=== PATIENT | female | born 1960 | race Caucasian/White ===

== ENCOUNTER 2016-07-02 10:57 | Inpatient (IN) | payer MEDICARE, MEDICAID ==
[~2016-07-02] VITALS: Ht 160 cm; Wt 111.8 kg
[~2016-07-02 10:57] MED LIST: BUPR300T3 PO; DULO60CA6 PO; HYDR-2678 PO; HYDR12.58 PO; HYDR200T PO; METO25TA9 PO; OLME20TA PO; TOPI50TA38 PO; ZIPR80CA2 PO
--- NOTE | 2016-07-02 12:12 | PHYS DOC ---
Past Medical History Past Medical History: Anxiety, Bipolar, Depression, Hypertension, Other Additional Past Medical Histor: lupus Past Surgical History: Appendectomy, Cholecystectomy, Hysterectomy, Knee Replacement, Other Additional Past Surgical Histo: bilateral knee replacement, rt arm skin graft Alcohol Use: None Drug Use: None Adult General Chief Complaint Chief Complaint: BACK PAIN OR INJURY HPI HPI Patient is a 55 year old female presents to the emergency department by EMS with complaints of lower back pain. Patient was seen at [facility] last night and was provided with a prescription for Percocet and Zofran. Mother at bedside states that she did not get the prescription filled last night as no pharmacies were open. Patient states that she has hydrocodone at home in which she has not taken because that has not helped with the pain and discomfort. Parent states she is here to be admitted as she is unable to get the patient up and around into the bathroom. Patient does state that she has some numbness and tingling down into her feet. Patient has not had pain medication since yesterday. Parent is in with patient upon assessment when parent states that she needs to be admitted and is requesting admission. Review of Systems Review of Systems Constitutional: Denies fever or chills [] Eyes: Denies change in visual acuity, redness, or eye pain [] HENT: Denies nasal congestion or sore throat [] Respiratory: Denies cough or shortness of breath [] Cardiovascular: No additional information not addressed in HPI [] GI: Denies abdominal pain, nausea, vomiting, bloody stools or diarrhea [] : Denies dysuria or hematuria [] Musculoskeletal: bilateral lower back pain denies joint pain [] Integument: Denies rash or skin lesions [] Neurologic: Denies headache, focal weakness or sensory changes [] Current Medications Current Medications Current Medications Medications (Trade) Dose Ordered Sig/Sydni Start Time Stop Time Status Last Admin Dose Admin Diazepam (Valium) 2 mg 1X ONCE 07/02/16 13:45 07/02/16 13:46 DC 07/02/16 13:45 2 MG Ketorolac Tromethamine (Toradol Im) 60 mg 1X ONCE 07/02/16 12:45 07/02/16 12:46 DC 07/02/16 12:40 60 MG Oxycodone/ Acetaminophen (Percocet 5/325) 1 tab 1X ONCE 07/02/16 12:30 07/02/16 12:31 DC 07/02/16 12:12 1 TAB Allergies Allergies Allergies Coded Allergies Type Severity Reaction Last Updated Verified lisinopril Adverse Reaction Intermediate 06/25/16 Yes Physical Exam Physical Exam Constitutional: Well developed, well nourished, no acute distress, non-toxic appearance. [] HENT: Normocephalic, atraumatic, bilateral external ears normal, oropharynx moist, no oral exudates, nose normal. [] Eyes: PERRLA, EOMI, conjunctiva normal, no discharge. [] Neck: Normal range of motion, no tenderness, supple, no stridor. [] Cardiovascular:Heart rate regular rhythm, no murmur [] Lungs & Thorax: Bilateral breath sounds clear to auscultation [] Abdomen: Bowel sounds normal, soft, no tenderness, no masses, no pulsatile masses. [] Skin: Warm, dry, no erythema, no rash. [] Back: No thoracic or lumbar spine tenderness noted no crepitus or deformity noted. Patient with pain to bilateral lower back areas. Extremities: No tenderness, no cyanosis, no clubbing, ROM intact, no edema. Peripheral pulses 2+ good sensation noted Neurologic: Alert and oriented X 3, normal motor function, normal sensory function, no focal deficits noted. [] Psychologic: Affect normal, judgement normal, mood normal. [] Current Patient Data Vital Signs Vital Signs Date Time Temp Pulse Resp B/P Pulse Ox O2 Delivery O2 Flow Rate FiO2 07/02/16 13:10 16 98 Room Air 07/02/16 11:00 98.7 99 129/75 98.7 EKG EKG [] Radiology/Procedures Radiology/Procedures [] Course & Med Decision Making Course & Med Decision Making Pertinent Labs and Imaging studies reviewed. (See chart for details) Parent at the bedside states that she needs to be admitted. She states normally Dr. May will call and make arrangements for her to be admitted prior to arrival. Parent continues to state that she is not able to take care of her at home as she cannot get her up and ambulate her to the bathroom. During assessment patient is not crying and is not tearful. She is able to sit forward without difficulty. Patient is able to sit up in bed without difficulty. Not until patient was provided with pain medication and parent stating that she is talkative to Dr. May in regards to admission did the patient start crying that she was in pain. Patient was noted to cry out periodically that she is having increased pain and discomfort. Attempted to ambulate with nursing staff with patient taking approximately 2 steps when family states that the cyst return for her in this is mean. Patient then stopped walking and starts crying more that she is in pain. Patient was provided with Percocet here in the emergency department as well as Toradol. After patient had attempted to ambulate with a walker Valium was provided. [id number] in regards to patients noncompliance and family request for admission since they do not feel that they can take care of her at home. Dr May recommends color consultant with Dr Fry After patient and family are aware the patient is being admitted she is no longer crying out that she is and discomfort. [] Dragon Disclaimer Dragon Disclaimer This electronic medical record was generated, in whole or in part, using a voice recognition dictation system. Departure Departure Impression: Primary Impression: Chronic back pain Disposition: 01 HOME, SELF-CARE Admitting Physician: Sukhdev May Condition: STABLE Referrals: SUKHDEV MAY MD (PCP) ALEXSANDER ARROYO NP Jul 02, 2016 12:12
[2016-07-02] MEDS ORDERED: OXYCODONE/APAP 5/325 TABLET. PO ONE (12:30)
[2016-07-02] MEDS ORDERED: KETOROLAC TROMETHAMINE 60 MG/2 ML SYRINGE. IM ONE (12:45)
[2016-07-02] MEDS ORDERED: DIAZEPAM 2 MG TABLET PO ONE (13:45)
[2016-07-02 15:49] VITALS: BP 116/67
[2016-07-02] MEDS ORDERED: MORPHINE SULFATE 2 MG/ML DISP.SYRIN. IV PRN (16:45)
[2016-07-02] MEDS ORDERED: ONDANSETRON PF 4 MG/2 ML VIAL. IV PRN (16:45)
[2016-07-02] MEDS ORDERED: methylPREDNISolone ACETATE 40 MG/ML VIAL. IM ONE (17:00)
[2016-07-02] MEDS ORDERED: BUPIVACAINE MPF 0.25% 10 ML VIAL. IJ ONE (17:00)
[2016-07-02] MEDS: MORPHINE SULFATE 4 MG/ML DISP.SYRIN. IV PRN ×2 (17:42→19:40)
[2016-07-02 19:00] VITALS: BP 106/58
[2016-07-02] MEDS: HYDROXYCHLOROQUINE 200 MG TABLET PO SCH (20:20)
[2016-07-02] MEDS: TOPIRAMATE 100 MG TABLET. PO SCH (20:20)
[2016-07-02] MEDS: ZIPRASIDONE 20 MG CAPSULE PO SCH (20:20)
[2016-07-02] MEDS: HYDROCODONE/APAP 5/325MG TABLET. PO PRN (20:22)
[2016-07-02 23:00] VITALS: BP 102/61
--- NOTE | 2016-07-03 02:26 | CONS ---
DATE OF CONSULTATION: 07/02/2016 ATTENDING PHYSICIAN: Dr. Ramires. The patient was seen at the request of Dr. Ramires for rehab evaluation. HISTORY OF PRESENT ILLNESS: This is a 55-year-old female with anxiety, bipolar disorder, depression, hypertension, lupus erythematosus, status post bilateral total knee arthroplasty done by Dr. Ramon Mitchell about 5 years ago, hysterectomy, cholecystectomy, appendectomy. The patient does not work. She lives with her parents. She had no steps for her to manage. She usually walks using a cane. The patient started having lower back pain with radiation to her left lower extremity, going on for about one and half to two weeks without any specific injury. She denies any trouble with her bowel or bladder control from this problem, but she had chronic urinary incontinence and has been using pads. The patient has been taking hydrocodone for pain, but is not helping. She was seen in the Emergency Room at [facility] last night, was given prescription for Percocet, but her mom does not drive at nighttime and she did not fill up the prescription. She was admitted for further evaluation and treatment through the Emergency Room this morning. ALLERGIES: The patient is known ALLERGIC TO LISINOPRIL. PHYSICAL EXAMINATION: Today revealed a middle-aged female. She is obese. She is in no acute distress. She had painful limited movements of her lumbar spine and tenderness to palpation over lumbar paraspinal muscles extending out to sacroiliac joint area and trochanteric bursa bilaterally. Straight leg raising test is negative bilaterally. She had 5/5 grade muscle strength in her lower extremities. Deep tendon reflexes are absent at both knees and ankles and she had equal perception of touch and pinprick sensation bilaterally. She is independent with rolling from side to side. I have not tested her transfers or ambulation skills at this time. IMAGING: She had MRI scan of her lumbar spine done on 06/26/2016, which revealed mild edema of S2, also apparently mild presacral edema. There is also apparently edema of visualized superior sacrum, could be due to sequelae of recent insufficiency fractures, otherwise difficulty to characterize, no enhancement upload within the intervertebral disk space suggestive of diskitis, trace focus of edema of the superior L4 endplate, although more likely to be reactive degenerative in etiology, small foci of marrow signal abnormality of T11 and T12 vertebral bodies which are nonspecific, may be due to atypical hemangioma unless there is clinical ____ history of malignancy, grade 1 anterior spondylolisthesis at L5-S1 and L5 spondylosis. ASSESSMENT: A middle-aged female with lower back pain with left lumbar radiculitis with associated bilateral trochanteric bursitis. No clinical evidence of lumbar radiculopathy. She had clinical evidence of peripheral neuropathy. She got obesity, status post bilateral total knee arthroplasty without any problems and also with history of anxiety, bipolar disorder, depression, hypertension, lupus erythematosus. RECOMMENDATION: To proceed with injecting painful left sacroiliac joint area to help ease her pain, which I performed under aseptic skin technique after skin preparation using alcohol swab and she tolerated the procedure satisfactorily. To consider asking Dr. Bess to consider sacroplasty if feasible. Dr. Ramires, I appreciate asking me to participate in the care of this interesting patient. I will be glad to follow her with you as needed for her rehabilitation. MIGUEL CRANDALL MD DR: DELFIN/bhargav JOB#: [id number] / [id number]
[2016-07-03 03:00] VITALS: BP 110/76
[2016-07-03] MEDS: MORPHINE SULFATE 4 MG/ML DISP.SYRIN. IV PRN ×6 (04:12→21:42)
[2016-07-03 07:00] VITALS: BP 97/58
[2016-07-03] MEDS: buPROPion XL 150 MG TAB.ER.24H PO SCH (07:47)
[2016-07-03] MEDS: DULOXETINE HCL 30 MG CAPSULE.DR. PO SCH (07:47)
[2016-07-03] MEDS: HYDROXYCHLOROQUINE 200 MG TABLET PO SCH ×2 (07:47→20:26)
[2016-07-03] MEDS: TOPIRAMATE 100 MG TABLET. PO SCH ×2 (07:47→20:26)
[2016-07-03] MEDS: ZIPRASIDONE 20 MG CAPSULE PO SCH ×2 (07:47→20:26)
[2016-07-03] MEDS: METOPROLOL SUCC 24HR ER 25 MG TAB.ER.24H. PO SCH (07:48)
[2016-07-03] MEDS: LOSARTAN POTASSIUM 50 MG TABLET. PO SCH (07:48)
[2016-07-03] MEDS: HYDROCHLOROTHIAZIDE 25 MG TABLET PO SCH (07:48)
--- NOTE | 2016-07-03 10:07 | PDOC ---
PROGRESS NOTES Subjective Subjective Pt awake and pleasant. Continues to c/o back pain. States she has been eating and drinking well with normal output. Objective Objective Pt awake and alert. NAD. VSS. Afebrile. Lungs CTA bilat. Resp even and unlabored. Heart with RRR. No murmurs. Vital Signs Date Time Temp Pulse Resp B/P Pulse Ox O2 Delivery O2 Flow Rate FiO2 07/03/16 08:12 20 97 Room Air 07/03/16 07:48 79 110/76 07/03/16 07:00 96.6 96.6 Intake and Output 07/03/16 07:00 Intake Total 370 ml Output Total 580 ml Balance -210 ml Intake Oral 370 ml Output Urine Total 580 ml # Voids 1 Assessment Assessment Problems Medical Problems: (1) Chronic back pain Status: Acute (2) Intractable back pain Status: Acute Plan Plan of Care 1. Back pain -MRI on 06/26/16 with mild edema of S2, mild presacral edema and edema of superior sacrum. These could be due to sequelae of recent insufficiency sacral fx. -Repeat MRI today -Dr Fry consulting - injection today -Dr Bess consulted for possible sacroplasty SW consulted as pt will most likely require SNU upon DC. DC pending adequate control of back pain and treatment by consults if indicated. Comment Review of Relevant I have reviewed the following items leo (where applicable) has been applied. Medications Current Medications Oxycodone/ Acetaminophen (Percocet 5/325) 1 tab 1X ONCE PO Last administered on 07/02/16 12:12; Start 07/02/16 at 12:30; Stop 07/02/16 at 12:31; Status DC Ketorolac Tromethamine (Toradol Im) 60 mg 1X ONCE IM Last administered on 07/02 12:40; Start 07/02/16 at 12:45; Stop 07/02/16 at 12:46; Status DC Diazepam (Valium) 2 mg 1X ONCE PO Last administered on 07/02/16 13:45; Start 07/02/16 at 13:45; Stop 07/02/16 at 13:46; Status DC Acetaminophen/ Hydrocodone Bitart (Lortab 5/325) 1 tab PRN Q4HRS PRN PO mild to moderate PAIN Last administered on 07/02/16 20:22; Start 07/02/16 at 16:45 Hydroxychloroquine Sulfate (Plaquenil) 200 mg BID PO Last administered on 07:47; Start 07/02/16 at 21:00 Metoprolol Succinate (Toprol Xl) 50 mg DAILY PO Last administered on 07/03/16 07:48; Start 07/03/16 at 09:00 Bupropion HCl (Wellbutrin Xl) 300 mg DAILY PO Last administered on 07/03/16 07 :47; Start 07/03/16 at 09:00 Duloxetine HCl (Cymbalta) 60 mg DAILY PO Last administered on 07/03/16 07:47; Start 07/03/16 at 09:00 Hydrochlorothiazide (Hydrodiuril) 25 mg DAILY PO Last administered on 07:48; Start 07/03/16 at 09:00 Losartan Potassium (Cozaar) 100 mg DAILY PO Last administered on 07/03/16 07: 48; Start 07/03/16 at 09:00 Topiramate (Topamax) 150 mg BID PO Last administered on 07/03/16 07:47; Start 07/02/16 at 21:00 Ziprasidone (Geodon) 80 mg BID PO Last administered on 07/03/16 07:47; Start 07/02/16 at 21:00 Ondansetron HCl (Zofran) 4 mg PRN Q4HRS PRN IV NAUSEA/VOMITING; Start 07/02/16 at 16:45 Morphine Sulfate 2 mg PRN Q2HR PRN IV PAIN; Start 07/02/16 at 16:45 Morphine Sulfate 4 mg PRN Q2HR PRN IV PAIN Last administered on 07/03/16 07:42 ; Start 07/02/16 at 16:45 Morphine Sulfate 6 mg PRN Q2HR PRN IV PAIN; Start 07/02/16 at 16:45 Methylprednisolone Acetate (Depo-Medrol 40mg Vial) 40 mg 1X ONCE IM ; Start at 17:00; Stop 07/02/16 at 17:02; Status DC Bupivacaine HCl (Sensorcaine-Mpf 0.25%) 10 ml 1X ONCE IJ ; Start 07/02/16 at 17 :00; Stop 07/02/16 at 17:02; Status DC Active Scripts Active Reported Plaquenil (Hydroxychloroquine Sulfate) 200 Mg Tablet 200 Mg PO BID Geodon (Ziprasidone Hcl) 80 Mg Capsule 1 Cap PO BID Cymbalta (Duloxetine Hcl) 60 Mg Capsule.dr 1 Cap PO DAILY Benicar (Olmesartan Medoxomil) 20 Mg Tablet 1 Tab PO DAILY Wellbutrin Xl (Bupropion Hcl) 300 Mg Tab.er.24h 1 Tab PO DAILY Metoprolol Succinate ( Xl ) (Metoprolol Succinate) 25 Mg Tab.er.24h 2 Tab PO DAILY Topamax (Topiramate) 50 Mg Tablet 3 Tab PO BID Hydrochlorothiazide Tablet (Hydrochlorothiazide) 12.5 Mg Tablet 2 Tab PO DAILY Vitals/I & O Vital Sign - Last 24 Hours 07/02/16 07/02/16 07/02/16 07/02/16 11:00 12:12 13:10 15:49 Temp 98.7 97.8 98.7 97.8 Pulse 99 87 Resp 16 18 16 18 B/P 129/75 116/67 Pulse Ox 97 98 98 99 O2 Delivery Room Air Room Air Room Air Room Air 07/02/16 07/02/16 07/02/16 07/02/16 17:42 19:00 19:40 20:22 Temp 98.6 98.6 Pulse 101 Resp 20 20 20 B/P 106/58 Pulse Ox 93 O2 Delivery Room Air Room Air Room Air Room Air 07/02/16 07/03/16 07/03/16 07/03/16 23:00 03:00 04:12 07:00 Temp 98.1 97.7 96.6 98.1 97.7 96.6 Pulse 81 79 74 Resp 20 20 20 18 B/P 102/61 110/76 97/58 Pulse Ox 94 97 95 O2 Delivery Room Air Room Air Room Air Room Air 07/03/16 07/03/16 07/03/16 07/03/16 07:42 07:48 07:48 08:12 Pulse 79 79 Resp 20 20 B/P 110/76 110/76 Pulse Ox 97 97 O2 Delivery Room Air Room Air Intake and Output 07/02/16 07/02/16 07/03/16 15:00 23:00 07:00 Intake Total 370 ml Output Total 280 ml 300 ml Balance -280 ml 70 ml SUKHDEV MAY MD Jul 03, 2016 10:07
--- NOTE | 2016-07-03 10:13 | PDOC ---
PROGRESS NOTES Subjective Subjective She is sleeping in bed comfortably with lumbar corset on. Objective Objective Vital Signs Date Time Temp Pulse Resp B/P Pulse Ox O2 Delivery O2 Flow Rate FiO2 07/03/16 08:12 20 97 Room Air 07/03/16 07:48 79 110/76 07/03/16 07:00 96.6 96.6 Intake and Output 07/03/16 07:00 Intake Total 370 ml Output Total 580 ml Balance -210 ml Intake Oral 370 ml Output Urine Total 580 ml # Voids 1 Physical Exam Physical Exam No change with her lower extremity neurological condition. Assessment Assessment Problems Medical Problems: (1) Chronic back pain Status: Acute (2) Intractable back pain Status: Acute Plan Plan of Care To see how she does getting up with back support. Comment Review of Relevant I have reviewed the following items leo (where applicable) has been applied. Medications Current Medications Oxycodone/ Acetaminophen (Percocet 5/325) 1 tab 1X ONCE PO Last administered on 07/02/16 12:12; Start 07/02/16 at 12:30; Stop 07/02/16 at 12:31; Status DC Ketorolac Tromethamine (Toradol Im) 60 mg 1X ONCE IM Last administered on 07/02 12:40; Start 07/02/16 at 12:45; Stop 07/02/16 at 12:46; Status DC Diazepam (Valium) 2 mg 1X ONCE PO Last administered on 07/02/16 13:45; Start 07/02/16 at 13:45; Stop 07/02/16 at 13:46; Status DC Acetaminophen/ Hydrocodone Bitart (Lortab 5/325) 1 tab PRN Q4HRS PRN PO mild to moderate PAIN Last administered on 07/02/16 20:22; Start 07/02/16 at 16:45 Hydroxychloroquine Sulfate (Plaquenil) 200 mg BID PO Last administered on 07:47; Start 07/02/16 at 21:00 Metoprolol Succinate (Toprol Xl) 50 mg DAILY PO Last administered on 07/03/16 07:48; Start 07/03/16 at 09:00 Bupropion HCl (Wellbutrin Xl) 300 mg DAILY PO Last administered on 07/03/16 07 :47; Start 07/03/16 at 09:00 Duloxetine HCl (Cymbalta) 60 mg DAILY PO Last administered on 07/03/16 07:47; Start 07/03/16 at 09:00 Hydrochlorothiazide (Hydrodiuril) 25 mg DAILY PO Last administered on 07:48; Start 07/03/16 at 09:00 Losartan Potassium (Cozaar) 100 mg DAILY PO Last administered on 07/03/16 07: 48; Start 07/03/16 at 09:00 Topiramate (Topamax) 150 mg BID PO Last administered on 07/03/16 07:47; Start 07/02/16 at 21:00 Ziprasidone (Geodon) 80 mg BID PO Last administered on 07/03/16 07:47; Start 07/02/16 at 21:00 Ondansetron HCl (Zofran) 4 mg PRN Q4HRS PRN IV NAUSEA/VOMITING; Start 07/02/16 at 16:45 Morphine Sulfate 2 mg PRN Q2HR PRN IV PAIN; Start 07/02/16 at 16:45 Morphine Sulfate 4 mg PRN Q2HR PRN IV PAIN Last administered on 07/03/16 07:42 ; Start 07/02/16 at 16:45 Morphine Sulfate 6 mg PRN Q2HR PRN IV PAIN; Start 07/02/16 at 16:45 Methylprednisolone Acetate (Depo-Medrol 40mg Vial) 40 mg 1X ONCE IM ; Start at 17:00; Stop 07/02/16 at 17:02; Status DC Bupivacaine HCl (Sensorcaine-Mpf 0.25%) 10 ml 1X ONCE IJ ; Start 07/02/16 at 17 :00; Stop 07/02/16 at 17:02; Status DC Active Scripts Active Reported Plaquenil (Hydroxychloroquine Sulfate) 200 Mg Tablet 200 Mg PO BID Geodon (Ziprasidone Hcl) 80 Mg Capsule 1 Cap PO BID Cymbalta (Duloxetine Hcl) 60 Mg Capsule.dr 1 Cap PO DAILY Benicar (Olmesartan Medoxomil) 20 Mg Tablet 1 Tab PO DAILY Wellbutrin Xl (Bupropion Hcl) 300 Mg Tab.er.24h 1 Tab PO DAILY Metoprolol Succinate ( Xl ) (Metoprolol Succinate) 25 Mg Tab.er.24h 2 Tab PO DAILY Topamax (Topiramate) 50 Mg Tablet 3 Tab PO BID Hydrochlorothiazide Tablet (Hydrochlorothiazide) 12.5 Mg Tablet 2 Tab PO DAILY Vitals/I & O Vital Sign - Last 24 Hours 07/02/16 07/02/16 07/02/16 07/02/16 11:00 12:12 13:10 15:49 Temp 98.7 97.8 98.7 97.8 Pulse 99 87 Resp 16 18 16 18 B/P 129/75 116/67 Pulse Ox 97 98 98 99 O2 Delivery Room Air Room Air Room Air Room Air 07/02/16 07/02/16 07/02/16 07/02/16 17:42 19:00 19:40 20:22 Temp 98.6 98.6 Pulse 101 Resp 20 20 20 B/P 106/58 Pulse Ox 93 O2 Delivery Room Air Room Air Room Air Room Air 07/02/16 07/03/16 07/03/16 07/03/16 23:00 03:00 04:12 07:00 Temp 98.1 97.7 96.6 98.1 97.7 96.6 Pulse 81 79 74 Resp 20 20 20 18 B/P 102/61 110/76 97/58 Pulse Ox 94 97 95 O2 Delivery Room Air Room Air Room Air Room Air 07/03/16 07/03/16 07/03/16 07/03/16 07:42 07:48 07:48 08:12 Pulse 79 79 Resp 20 20 B/P 110/76 110/76 Pulse Ox 97 97 O2 Delivery Room Air Room Air Intake and Output 07/02/16 07/02/16 07/03/16 15:00 23:00 07:00 Intake Total 370 ml Output Total 280 ml 300 ml Balance -280 ml 70 ml MIGUEL CRANDALL MD Jul 03, 2016 10:13
[2016-07-03 10:39] VITALS: BP 92/46
--- NOTE | 2016-07-03 13:41 | RAD ---
PROCEDURE MRI sacrum without contrast. HISTORY Sacral insufficiency fractures, evaluation for sacroplasty. Abnormal MRI lumbar spine. TECHNIQUE 3 plane T1, 3 plane fat suppressed T2, and oblique coronal STIR imaging was performed. COMPARISON MRI lumbar spine from June 26, 2016. FINDINGS Bilateral sacral edema extends to the sacral ala bilaterally and is most notable in the S1 and S2 segments. Subtle T1 hypointense linear abnormalities are noted associated with the edema. Imaging appearance is compatible with sacral insufficiency fractures, acute. There is no obvious lesion to suggest pathologic fracture. A sacral perineural cyst is noted. Presacral edema is noted. Subcutaneous edema is noted. IMPRESSION Findings of acute bilateral sacral insufficiency fractures. Electronically signed by: Sree Andres MD (Jul 03, 2016 13:39:53)
--- NOTE | 2016-07-03 14:09 | HP ---
ADMIT DATE: 07/02/2016 CHIEF COMPLAINT AND HISTORY OF PRESENT ILLNESS: This is a 55-year-old white female who is well known to me from followup in the office as well as a recent hospital stay with discharge of 06/27/2016. The patient presented to the Emergency Room on the date of admission with complaints of low back pain. Her family accompanied her and stated that they were unable to take care of her at home due to her inability to be mobile without pain. The patient stated to the ER physician that she did have hydrocodone at home; however, had not been taking it as it had not helped in the past with the pain and discomfort. Upon the patient's previous hospitalization, an MRI was done and revealed a sacral insufficiency fracture with associated edema. The patient denies any trauma following the probable fracture. PAST MEDICAL HISTORY: Remarkable for longstanding bipolar depression, urge incontinence, arthritis, hypertension and hyperlipidemia. PAST SURGICAL HISTORY: She has had bilateral knee replacements, has had an appendectomy, cholecystectomy, , hysterectomy with BSO. MEDICATIONS: Brought with the patient, listed on the computer and have been addressed. ALLERGIES: She is allergic to penicillin. SOCIAL HISTORY: She is a nonsmoker, nondrinker, with 3 grandchildren and lives with her mother. FAMILY HISTORY: Positive for diabetes on her father's side, cancer of the breast on her mother's side. There has been no report of heart disease or hypertension on either side of the family. REVIEW OF SYSTEMS: As mentioned above. PHYSICAL EXAMINATION: GENERAL: She is a well-developed, well-nourished, obese white female who appears very uncomfortable. VITAL SIGNS: Stable. She is afebrile. HEAD, EYES, EARS, NOSE AND THROAT: Unremarkable. NECK: Supple, without thyromegaly. CHEST: Clear to auscultation and percussion. HEART: Regular rate and rhythm without S3, S4, or murmurs. ABDOMEN: Soft, nontender, without hepatosplenomegaly or mass. EXTREMITIES: Without cyanosis, clubbing or edema. NEUROLOGIC: She is intact. IMPRESSION: Severe back pain within inadequate pain control, probable sacral insufficiency fracture. PLAN: The patient has been admitted for pain control. Dr. Fry has been consulted and will be consulted for their input on treatment options. The patient will be monitored, managed and treated appropriately during her hospital stay. SUKHDEV MAY MD DR: JACOBY/bhargav JOB#: [id number] / [id number]
[2016-07-03 14:53] VITALS: BP 99/53
--- NOTE | 2016-07-03 15:14 | PDOC ---
Provider Note Provider Note IR Note: IR asked to consider sacral vertebroplasty--thank you. Barb is a pleasant 55 YO female with severe low back/sacral pain. She has had recent SI joint injection per Dr Fry, with only mild improvement. She is tender to palpation over sacrum. MRI today revealed findings consistent with extensive bilateral insufficiency fractures. By history, physical exam, and imaging, Barb is considered a reasonable candidate for image guided sacral vertebroplasty. Sacral vertebroplasty procedure, with benefits and risks, was discussed at length with Barb. She understood and was anxious to proceed. She has been tentatively scheduled for CT guided sacral vertebroplasty with me tomorrow at 1230 hrs, with anesthesia assistance. GAVINO NAVARRO MD Jul 03, 2016 15:14
[2016-07-03 18:22] LABS: INR 1.1 (0.8-1.1); PROTHROMBIN TIME PATIENT 13.4 SEC (11.7-14.0)
[2016-07-03 19:00] VITALS: BP 107/48
[2016-07-03 22:50] VITALS: BP 107/52
[2016-07-04] VITALS (11 sets, daily range): BP systolic 98–157; BP diastolic 52–97
[2016-07-04] MEDS: MORPHINE SULFATE 4 MG/ML DISP.SYRIN. IV PRN ×4 (08:40→21:09)
[2016-07-04] MEDS: HYDROCHLOROTHIAZIDE 25 MG TABLET PO SCH (09:00)
[2016-07-04] MEDS: LOSARTAN POTASSIUM 50 MG TABLET. PO SCH (09:00)
[2016-07-04] MEDS: METOPROLOL SUCC 24HR ER 25 MG TAB.ER.24H. PO SCH (09:00)
--- NOTE | 2016-07-04 10:27 | PDOC ---
PROGRESS NOTES Subjective Subjective Pt awake and pleasant. Continues to c/o pain in her lower back. Pt states she is NPO this am, however has an appetite. Pt denies difficulty with BMs or urination. Objective Objective Pt awake and alert. NAD. VSS. Afebrile. Lungs CTA bilat. Resp even and unlabored. Heart with RRR. No murmurs. Vital Signs Date Time Temp Pulse Resp B/P Pulse Ox O2 Delivery O2 Flow Rate FiO2 07/04/16 08:40 Room Air 07/04/16 07:00 98.0 70 18 107/60 94 98.0 Intake and Output 07/04/16 07:00 Intake Total 360 ml Output Total 300 ml Balance 60 ml Intake Oral 360 ml Output Urine Total 300 ml # Voids 4 Assessment Assessment Problems Medical Problems: (1) Chronic back pain Status: Acute (2) Intractable back pain Status: Acute Plan Plan of Care 1. Back pain -MRI on 06/26/16 with mild edema of S2, mild presacral edema and edema of superior sacrum. These could be due to sequelae of recent insufficiency sacral fx. -Repeat MRI on 07/03: "Findings of acute bilateral sacral insufficiency fractures." -Dr Fry consulting - injection on 07/03 -Dr Bess consulted - vertebroplasty scheduled for today [facility] to Dc tomorrow am to [facility]. Dc dependent on PT eval and recommendations and adequate pain control. Comment Review of Relevant I have reviewed the following items leo (where applicable) has been applied. Labs Laboratory Tests Test 07/03/16 17:30 Prothrombin Time 13.4SEC (11.7-14.0) Prothromb Time International Ratio 1.1 (0.8-1.1) Laboratory Tests Test 07/03/16 17:30 Prothrombin Time 13.4SEC (11.7-14.0) Prothromb Time International Ratio 1.1 (0.8-1.1) Medications Current Medications Oxycodone/ Acetaminophen (Percocet 5/325) 1 tab 1X ONCE PO Last administered on 07/02/16t 12:12; Start 07/02/16 at 12:30; Stop 07/02/16 at 12:31; Status DC Ketorolac Tromethamine (Toradol Im) 60 mg 1X ONCE IM Last administered on 07/02 12:40; Start 07/02/16 at 12:45; Stop 07/02/16 at 12:46; Status DC Diazepam (Valium) 2 mg 1X ONCE PO Last administered on 07/02/16 13:45; Start 07/02/16 at 13:45; Stop 07/02/16 at 13:46; Status DC Acetaminophen/ Hydrocodone Bitart (Lortab 5/325) 1 tab PRN Q4HRS PRN PO mild to moderate PAIN Last administered on 07/02/16 20:22; Start 07/02/16 at 16:45 Hydroxychloroquine Sulfate (Plaquenil) 200 mg BID PO Last administered on 20:26; Start 07/02/16 at 21:00 Metoprolol Succinate (Toprol Xl) 50 mg DAILY PO Last administered on 07/03/16 07:48; Start 07/03/16 at 09:00 Bupropion HCl (Wellbutrin Xl) 300 mg DAILY PO Last administered on 07/03/16 07 :47; Start 07/03/16 at 09:00 Duloxetine HCl (Cymbalta) 60 mg DAILY PO Last administered on 07/03/16 07:47; Start 07/03/16 at 09:00 Hydrochlorothiazide (Hydrodiuril) 25 mg DAILY PO Last administered on 07:48; Start 07/03/16 at 09:00 Losartan Potassium (Cozaar) 100 mg DAILY PO Last administered on 07/03/16 07: 48; Start 07/03/16 at 09:00 Topiramate (Topamax) 150 mg BID PO Last administered on 07/03/16 20:26; Start 07/02/16 at 21:00 Ziprasidone (Geodon) 80 mg BID PO Last administered on 07/03/16 20:26; Start 07/02/16 at 21:00 Ondansetron HCl (Zofran) 4 mg PRN Q4HRS PRN IV NAUSEA/VOMITING; Start 07/02/16 at 16:45 Morphine Sulfate 2 mg PRN Q2HR PRN IV PAIN; Start 07/02/16 at 16:45 Morphine Sulfate 4 mg PRN Q2HR PRN IV PAIN Last administered on 07/04/16 08:40 ; Start 07/02/16 at 16:45 Morphine Sulfate 6 mg PRN Q2HR PRN IV PAIN; Start 07/02/16 at 16:45 Methylprednisolone Acetate (Depo-Medrol 40mg Vial) 40 mg 1X ONCE IM ; Start at 17:00; Stop 07/02/16 at 17:02; Status DC Bupivacaine HCl (Sensorcaine-Mpf 0.25%) 10 ml 1X ONCE IJ ; Start 07/02/16 at 17 :00; Stop 07/02/16 at 17:02; Status DC Active Scripts Active Reported Plaquenil (Hydroxychloroquine Sulfate) 200 Mg Tablet 200 Mg PO BID Geodon (Ziprasidone Hcl) 80 Mg Capsule 1 Cap PO BID Cymbalta (Duloxetine Hcl) 60 Mg Capsule.dr 1 Cap PO DAILY Benicar (Olmesartan Medoxomil) 20 Mg Tablet 1 Tab PO DAILY Wellbutrin Xl (Bupropion Hcl) 300 Mg Tab.er.24h 1 Tab PO DAILY Metoprolol Succinate ( Xl ) (Metoprolol Succinate) 25 Mg Tab.er.24h 2 Tab PO DAILY Topamax (Topiramate) 50 Mg Tablet 3 Tab PO BID Hydrochlorothiazide Tablet (Hydrochlorothiazide) 12.5 Mg Tablet 2 Tab PO DAILY Vitals/I & O Vital Sign - Last 24 Hours 07/03/16 07/03/16 07/03/16 07/03/16 10:39 12:14 14:34 14:53 Temp 97.9 97.2 97.9 97.2 Pulse 67 75 Resp 16 20 20 18 B/P 92/46 99/53 Pulse Ox 93 93 93 94 O2 Delivery Room Air Room Air 07/03/16 07/03/16 07/03/16 07/03/16 15:04 18:55 19:00 20:00 Temp 98.7 98.7 Pulse 77 Resp 18 19 B/P 107/48 Pulse Ox 94 93 O2 Delivery Room Air Room Air Room Air 07/03/16 07/03/16 07/03/16 07/04/16 21:42 22:13 22:50 07:00 Temp 98.4 98.0 98.4 98.0 Pulse 69 70 Resp 20 18 18 18 B/P 107/52 107/60 Pulse Ox 93 94 O2 Delivery Room Air Room Air Room Air 07/04/16 08:40 O2 Delivery Room Air Intake and Output 07/03/16 07/03/16 07/04/16 15:00 23:00 07:00 Intake Total 240 ml 120 ml Output Total 300 ml Balance 240 ml -300 ml 120 ml SUKHDEV MAY MD Jul 04, 2016 10:27
--- NOTE | 2016-07-04 10:32 | PDOC ---
PROGRESS NOTES Subjective Subjective She continues with low back pain. Objective Objective Vital Signs Date Time Temp Pulse Resp B/P Pulse Ox O2 Delivery O2 Flow Rate FiO2 07/04/16 08:40 Room Air 07/04/16 07:00 98.0 70 18 107/60 94 98.0 Intake and Output 07/04/16 07:00 Intake Total 360 ml Output Total 300 ml Balance 60 ml Intake Oral 360 ml Output Urine Total 300 ml # Voids 4 Physical Exam Physical Exam Mri scan confirmed sacral insufficiency fractures.She is supine in bed and does not seem to be in any distress. Assessment Assessment Problems Medical Problems: (1) Chronic back pain Status: Acute (2) Intractable back pain Status: Acute Plan Plan of Care Agree with plans for sacroplasty. Comment Review of Relevant I have reviewed the following items leo (where applicable) has been applied. Labs Laboratory Tests Test 07/03/16 17:30 Prothrombin Time 13.4SEC (11.7-14.0) Prothromb Time International Ratio 1.1 (0.8-1.1) Laboratory Tests Test 07/03/16 17:30 Prothrombin Time 13.4SEC (11.7-14.0) Prothromb Time International Ratio 1.1 (0.8-1.1) Medications Current Medications Oxycodone/ Acetaminophen (Percocet 5/325) 1 tab 1X ONCE PO Last administered on 07/02/16 12:12; Start 07/02/16 at 12:30; Stop 07/02/16 at 12:31; Status DC Ketorolac Tromethamine (Toradol Im) 60 mg 1X ONCE IM Last administered on 07/02 12:40; Start 07/02/16 at 12:45; Stop 07/02/16 at 12:46; Status DC Diazepam (Valium) 2 mg 1X ONCE PO Last administered on 07/02/16 13:45; Start 07/02/16 at 13:45; Stop 07/02/16 at 13:46; Status DC Acetaminophen/ Hydrocodone Bitart (Lortab 5/325) 1 tab PRN Q4HRS PRN PO mild to moderate PAIN Last administered on 07/02/16 20:22; Start 07/02/16 at 16:45 Hydroxychloroquine Sulfate (Plaquenil) 200 mg BID PO Last administered on 20:26; Start 07/02/16 at 21:00 Metoprolol Succinate (Toprol Xl) 50 mg DAILY PO Last administered on 07/03/16 07:48; Start 07/03/16 at 09:00 Bupropion HCl (Wellbutrin Xl) 300 mg DAILY PO Last administered on 07/03/16 07 :47; Start 07/03/16 at 09:00 Duloxetine HCl (Cymbalta) 60 mg DAILY PO Last administered on 07/03/16 07:47; Start 07/03/16 at 09:00 Hydrochlorothiazide (Hydrodiuril) 25 mg DAILY PO Last administered on 07:48; Start 07/03/16 at 09:00 Losartan Potassium (Cozaar) 100 mg DAILY PO Last administered on 07/03/16 07: 48; Start 07/03/16 at 09:00 Topiramate (Topamax) 150 mg BID PO Last administered on 07/03/16 20:26; Start 07/02/16 at 21:00 Ziprasidone (Geodon) 80 mg BID PO Last administered on 07/03/16 20:26; Start 07/02/16 at 21:00 Ondansetron HCl (Zofran) 4 mg PRN Q4HRS PRN IV NAUSEA/VOMITING; Start 07/02/16 at 16:45 Morphine Sulfate 2 mg PRN Q2HR PRN IV PAIN; Start 07/02/16 at 16:45 Morphine Sulfate 4 mg PRN Q2HR PRN IV PAIN Last administered on 07/04/16 08:40 ; Start 07/02/16 at 16:45 Morphine Sulfate 6 mg PRN Q2HR PRN IV PAIN; Start 07/02/16 at 16:45 Methylprednisolone Acetate (Depo-Medrol 40mg Vial) 40 mg 1X ONCE IM ; Start at 17:00; Stop 07/02/16 at 17:02; Status DC Bupivacaine HCl (Sensorcaine-Mpf 0.25%) 10 ml 1X ONCE IJ ; Start 07/02/16 at 17 :00; Stop 07/02/16 at 17:02; Status DC Active Scripts Active Reported Plaquenil (Hydroxychloroquine Sulfate) 200 Mg Tablet 200 Mg PO BID Geodon (Ziprasidone Hcl) 80 Mg Capsule 1 Cap PO BID Cymbalta (Duloxetine Hcl) 60 Mg Capsule.dr 1 Cap PO DAILY Benicar (Olmesartan Medoxomil) 20 Mg Tablet 1 Tab PO DAILY Wellbutrin Xl (Bupropion Hcl) 300 Mg Tab.er.24h 1 Tab PO DAILY Metoprolol Succinate ( Xl ) (Metoprolol Succinate) 25 Mg Tab.er.24h 2 Tab PO DAILY Topamax (Topiramate) 50 Mg Tablet 3 Tab PO BID Hydrochlorothiazide Tablet (Hydrochlorothiazide) 12.5 Mg Tablet 2 Tab PO DAILY Vitals/I & O Vital Sign - Last 24 Hours 07/03/16 07/03/16 07/03/16 07/03/16 10:39 12:14 14:34 14:53 Temp 97.9 97.2 97.9 97.2 Pulse 67 75 Resp 16 20 20 18 B/P 92/46 99/53 Pulse Ox 93 93 93 94 O2 Delivery Room Air Room Air 07/03/16 07/03/16 07/03/16 07/03/16 15:04 18:55 19:00 20:00 Temp 98.7 98.7 Pulse 77 Resp 18 19 B/P 107/48 Pulse Ox 94 93 O2 Delivery Room Air Room Air Room Air 07/03/16 07/03/16 07/03/16 07/04/16 21:42 22:13 22:50 07:00 Temp 98.4 98.0 98.4 98.0 Pulse 69 70 Resp 20 18 18 18 B/P 107/52 107/60 Pulse Ox 93 94 O2 Delivery Room Air Room Air Room Air 07/04/16 08:40 O2 Delivery Room Air Intake and Output 07/03/16 07/03/16 07/04/16 15:00 23:00 07:00 Intake Total 240 ml 120 ml Output Total 300 ml Balance 240 ml -300 ml 120 ml MIGUEL CRANDALL MD Jul 04, 2016 10:32
[2016-07-04] MEDS ORDERED: LIDOCAINE 1% / SOD BICARB 8.4% 20 ML VIAL. IJ ONE (10:43)
[2016-07-04] MEDS ORDERED: CEFTRIAXONE 1GM IVPB FOR OMNI 50 ML IV ONE (11:15)
[2016-07-04] MEDS ORDERED: FENTANYL PF 100 MCG/2 ML VIAL. ONE (11:15)
[2016-07-04] MEDS ORDERED: LIDOCAINE 2% 100 MG/5 ML DISP.SYRIN. ONE (12:00)
[2016-07-04] MEDS ORDERED: PROPOFOL 10 MG/ML (20ML) VIAL. IV ONE (12:00)
[2016-07-04] MEDS ORDERED: KETOROLAC TROMETHAMINE 30 MG/ML SYRINGE. IV PRN (12:30)
--- NOTE | 2016-07-04 12:35 | PDOC ---
Exam Clinical Education Assistant Clinical Education Assistant Shahriar Tow Motor Driver Tow Motor Driver B Cates Pre-Procedure Diagnosis Pre-Procedure Diagnosis Bilateral sacral insufficiency fractures, with severe pain Post-Procedure Diagnosis Post-Procedure Diagnosis Same Procedure Performed Procedure Performed CT guided bilateral sacral vertebroplasty Type of Anesthesia Type of Anesthesia MAC by Anesthesia Estimated Blood Loss EBL: Minimal Condition of Patient Condition of Patient Stable. No apparent complication. Disposition Disposition From IR/CT to PACU for recovery. May return to 572 post recovery, if no problems. F/u with Dr Trujillo and Dr Fry. Full report to follow. GAVINO NAVARRO MD Jul 04, 2016 12:35
[2016-07-04] MEDS ORDERED: IV RINGERS,LACTATED 1000ML 1,000 ML IV SCH (12:43)
[2016-07-04] MEDS ORDERED: LIDOCAINE 1% 1 ML SYRINGE. ID PRN (12:45)
[2016-07-04] MEDS ORDERED: FENTANYL PF 100 MCG/2 ML VIAL. IV PRN (12:45)
[2016-07-04] MEDS ORDERED: PROCHLORPERAZINE 10 MG/2 ML VIAL. IV PRN (12:45)
[2016-07-04] MEDS ORDERED: HYDROMORPHONE 2 MG/ML VIAL. IV PRN (12:45)
[2016-07-04] MEDS ORDERED: PROPOFOL 20 ML IV ONE (12:50)
[2016-07-04] MEDS: FENTANYL PF 100 MCG/2 ML VIAL. IV PRN ×4 (12:57→13:42)
[2016-07-04] MEDS: MORPHINE SULFATE 2 MG/ML DISP.SYRIN. IV PRN ×2 (13:12→13:22)
[2016-07-04] MEDS: DULOXETINE HCL 30 MG CAPSULE.DR. PO SCH (16:21)
[2016-07-04] MEDS: buPROPion XL 150 MG TAB.ER.24H PO SCH (16:21)
[2016-07-04] MEDS: TOPIRAMATE 100 MG TABLET. PO SCH ×2 (16:22→20:54)
[2016-07-04] MEDS: HYDROCODONE/APAP 5/325MG TABLET. PO PRN (16:22)
[2016-07-04] MEDS: HYDROXYCHLOROQUINE 200 MG TABLET PO SCH ×2 (16:22→20:52)
[2016-07-04] MEDS: ZIPRASIDONE 20 MG CAPSULE PO SCH ×2 (16:32→20:52)
[2016-07-05] MEDS: MORPHINE SULFATE 4 MG/ML DISP.SYRIN. IV PRN (05:42)
--- NOTE | 2016-07-05 06:39 | RAD ---
CT-guided bilateral sacral vertebroplasty Indication: 55-year-old female with bilateral sacral insufficiency fractures, and with severe, lifestyle limiting pain. Moderate sedation: Mac anesthesia was provided by the department of anesthesiology. Antibiotic: A single dose of Rocephin was administered within 1 hour of the procedure start time. Consent: The procedure was explained in its entirety to the patient and/or the patient's designated leasing representative by a member of the treatment team. This included a discussion of risks and benefits and commonly accepted alternatives to the procedure, as well as expected consequences of no treatment at all. Discussion of risks included, but was not limited to, those that are most frequent and those that are rare, but possibly severe or life-threatening, as well as the possibility of unforeseen complications. Sterility: All elements of maximal sterile barrier technique, including the use of a cap, mask, sterile gown, sterile gloves, large sterile sheet, appropriate hand hygiene, and 2% chlorhexidine for cutaneous antisepsis (or acceptable alternative antiseptic per current guidelines) were utilized. Procedure: Informed consent was obtained from the patient. She was placed prone on the CT scanner. Mac anesthesia was provided by the department of anesthesiology. 1 g Rocephin was given IV, prophylactically. CT-guided bilateral sacral vertebroplasty needle placement: Preliminary noncontrast CT images were obtained through sacrum, with the CT gantry in maximum caudo-cranial angulation. Posterior skin sites suitable for insertion of bilateral sacral vertebroplasty needles were selected and marked. Both areas were prepped and draped in the usual sterile fashion, utilizing all elements of maximal sterile barrier technique, as described above. Using aseptic technique, local anesthesia, and CT guidance, an 11-gauge sacral vertebroplasty needle was carefully advanced through posterior cortex of mid right S2 segment. That needle was then gently advanced superiorly to the level of right S1, taking care to avoid right sacral neural foramina and right SI joint. Similarly, using aseptic technique, local anesthesia, and CT guidance, a second 11-gauge sacral vertebroplasty needle was gently advanced through posterior cortex of mid left S2 segment. That needle was then carefully advanced superiorly to the level of S1, taking care to avoid left neural foramina and left SI joint. Satisfactory position of the 2 sacral vertebroplasty needles was then confirmed with completion CT images. CT-guided bilateral sacral vertebroplasty cement injections: Following successful, uneventful CT-guided insertion of bilateral sacral vertebroplasty needles, contrast opacified polymethylmethacrylate was carefully injected through both needles, in small [address] images were obtained following each small cement injection. This process was repeated several times, during gradual withdrawal of both sacral vertebroplasty needles from S1 to S2. This resulted in satisfactory contrast opacification of sacrum, bilaterally. There was no abnormal extraosseous extension of opacified cement into SI joints, neural foramina, or presacral space. The sacral vertebroplasty needles were then removed and sterile dressings were applied. Patient tolerated the procedure well without apparent complication. She was transported from the CT suite to the postanesthesia care unit in stable condition. Impression: Successful, uneventful CT-guided bilateral sacral vertebroplasty, as described. PQRS Compliance Statement: One or more of the following individualized dose reduction techniques was utilized for this CT procedure: 1. Automated exposure control. 2. Adjustment of MA and/or KV according to patient size. 3. Iterative reconstruction technique.
[2016-07-05 07:00] VITALS: BP 96/62
[2016-07-05] MEDS: HYDROCODONE/APAP 5/325MG TABLET. PO PRN ×2 (08:27→14:41)
[2016-07-05] MEDS: buPROPion XL 150 MG TAB.ER.24H PO SCH (08:27)
[2016-07-05] MEDS: TOPIRAMATE 100 MG TABLET. PO SCH (08:28)
[2016-07-05] MEDS: DULOXETINE HCL 30 MG CAPSULE.DR. PO SCH (08:28)
[2016-07-05] MEDS: ZIPRASIDONE 20 MG CAPSULE PO SCH (08:32)
[2016-07-05] MEDS: LOSARTAN POTASSIUM 50 MG TABLET. PO SCH (08:35)
[2016-07-05] MEDS: HYDROCHLOROTHIAZIDE 25 MG TABLET PO SCH (08:35)
[2016-07-05] MEDS: METOPROLOL SUCC 24HR ER 25 MG TAB.ER.24H. PO SCH (08:35)
[2016-07-05] MEDS: HYDROXYCHLOROQUINE 200 MG TABLET PO SCH (08:35)
--- NOTE | 2016-07-05 10:32 | PDOC ---
PROGRESS NOTES Subjective Subjective She admits some help with sacroplasty but continues with some low back pain. Objective Objective Vital Signs Date Time Temp Pulse Resp B/P Pulse Ox O2 Delivery O2 Flow Rate FiO2 07/05/16 09:30 Room Air 07/05/16 08:35 69 96/62 07/05/16 07:00 98.3 17 92 98.3 07/05/16 06:12 2.0 Intake and Output 07/05/16 07:00 Intake Total 2570 ml Output Total 75 ml Balance 2495 ml Intake Oral 2020 ml IV Total 550 ml Output Urine Total 75 ml # Voids 8 Physical Exam Physical Exam She is sitting up in bedside chair without any back support. Assessment Assessment Problems Medical Problems: (1) Chronic back pain Status: Acute (2) Intractable back pain Status: Acute Plan Plan of Care Agree with plans for SNF transfer when medically stable. Comment Review of Relevant I have reviewed the following items leo (where applicable) has been applied. Labs Laboratory Tests Test 07/03/16 17:30 Prothrombin Time 13.4SEC (11.7-14.0) Prothromb Time International Ratio 1.1 (0.8-1.1) Medications Current Medications Oxycodone/ Acetaminophen (Percocet 5/325) 1 tab 1X ONCE PO Last administered on 07/02/16 12:12; Start 07/02/16 at 12:30; Stop 07/02/16 at 12:31; Status DC Ketorolac Tromethamine (Toradol Im) 60 mg 1X ONCE IM Last administered on 07/02 12:40; Start 07/02/16 at 12:45; Stop 07/02/16 at 12:46; Status DC Diazepam (Valium) 2 mg 1X ONCE PO Last administered on 07/02/16 13:45; Start 07/02/16 at 13:45; Stop 07/02/16 at 13:46; Status DC Acetaminophen/ Hydrocodone Bitart (Lortab 5/325) 1 tab PRN Q4HRS PRN PO mild to moderate PAIN Last administered on 07/05/16 08:27; Start 07/02/16 at 16:45 Hydroxychloroquine Sulfate (Plaquenil) 200 mg BID PO Last administered on 08:35; Start 07/02/16 at 21:00 Metoprolol Succinate (Toprol Xl) 50 mg DAILY PO Last administered on 07/03/16 07:48; Start 07/03/16 at 09:00 Bupropion HCl (Wellbutrin Xl) 300 mg DAILY PO Last administered on 07/05/16 08 :27; Start 07/03/16 at 09:00 Duloxetine HCl (Cymbalta) 60 mg DAILY PO Last administered on 07/05/16 08:28; Start 07/03/16 at 09:00 Hydrochlorothiazide (Hydrodiuril) 25 mg DAILY PO Last administered on 07:48; Start 07/03/16 at 09:00 Losartan Potassium (Cozaar) 100 mg DAILY PO Last administered on 07/03/16 07: 48; Start 07/03/16 at 09:00 Topiramate (Topamax) 150 mg BID PO Last administered on 07/05/16 08:28; Start 07/02/16 at 21:00 Ziprasidone (Geodon) 80 mg BID PO Last administered on 07/05/16 08:32; Start 07/02/16 at 21:00 Ondansetron HCl (Zofran) 4 mg PRN Q4HRS PRN IV NAUSEA/VOMITING; Start 07/02/16 at 16:45 Morphine Sulfate 2 mg PRN Q2HR PRN IV PAIN; Start 07/02/16 at 16:45 Morphine Sulfate 4 mg PRN Q2HR PRN IV PAIN Last administered on 07/04/16 14:52 ; Start 07/02/16 at 16:45 Morphine Sulfate 6 mg PRN Q2HR PRN IV PAIN Last administered on 07/05/16 05:42 ; Start 07/02/16 at 16:45 Methylprednisolone Acetate (Depo-Medrol 40mg Vial) 40 mg 1X ONCE IM ; Start at 17:00; Stop 07/02/16 at 17:02; Status DC Bupivacaine HCl (Sensorcaine-Mpf 0.25%) 10 ml 1X ONCE IJ ; Start 07/02/16 at 17 :00; Stop 07/02/16 at 17:02; Status DC Lidocaine/Sodium Bicarbonate 20 ml 20 ml STK-MED ONCE IJ ; Start 07/04/16 at 10: 43; Stop 07/04/16 at 10:44; Status DC Ceftriaxone Sodium (Rocephin 1gm Ivpb For Omni) 50 ml @ 100 mls/hr 1X ONCE IV Last administered on 07/04/16 11:20; Start 07/04/16 at 11:15; Stop 07/04/16 at 11:44; Status DC Fentanyl Citrate (Fentanyl 2ml Vial) 100 mcg STK-MED ONCE .ROUTE ; Start at 11:15; Stop 07/04/16 at 11:16; Status DC Ketorolac Tromethamine (Toradol) 30 mg 1X PRN PRN IV MODERATE PAIN; Start 07/04 at 12:30; Stop 07/09/16 at 12:29 Fentanyl Citrate (Fentanyl 2ml Vial) 25 mcg PRN Q5MIN PRN IV MILD PAIN; Start 07/04/16 at 12:45; Stop 07/04/16 at 20:00; Status DC Fentanyl Citrate (Fentanyl 2ml Vial) 50 mcg PRN Q5MIN PRN IV MODERATE PAIN Last administered on 07/04/16 13:42; Start 07/04/16 at 12:45; Stop 07/04/16 at 20:00; Status DC Morphine Sulfate 1 mg 1 mg PRN Q10MIN PRN IV SEVERE PAIN Last administered on 13:22; Start 07/04/16 at 12:45; Stop 07/04/16 at 20:00; Status DC Lactated Ringer's (Iv Lactated Ringers) 1,000 ml @ 30 mls/hr Q24H IV ; Start at 12:43; Stop 07/04/16 at 16:06; Status DC Lidocaine HCl 2 ml 1X PRN PRN ID IV START; Start 07/04/16 at 12:45; Stop at 20:00; Status DC Hydromorphone HCl (Dilaudid) 0.5 mg PRN Q10MIN PRN IV SEV PAIN,Second choice; Start 07/04/16 at 12:45; Stop 07/04/16 at 20:00; Status DC Prochlorperazine Edisylate 5 mg 5 mg PACU PRN PRN IV NAUSEA; Start 07/04/16 at 12:45; Stop 07/04/16 at 20:00; Status DC Propofol (Diprivan) 20 ml @ As Directed STK-MED ONCE IV ; Start 07/04/16 at 12: 50; Stop 07/04/16 at 12:51; Status DC Active Scripts Active Reported Plaquenil (Hydroxychloroquine Sulfate) 200 Mg Tablet 200 Mg PO BID Geodon (Ziprasidone Hcl) 80 Mg Capsule 1 Cap PO BID Cymbalta (Duloxetine Hcl) 60 Mg Capsule. 1 Cap PO DAILY Benicar (Olmesartan Medoxomil) 20 Mg Tablet 1 Tab PO DAILY Wellbutrin Xl (Bupropion Hcl) 300 Mg Tab.er.24h 1 Tab PO DAILY Metoprolol Succinate ( Xl ) (Metoprolol Succinate) 25 Mg Tab.er.24h 2 Tab PO DAILY Topamax (Topiramate) 50 Mg Tablet 3 Tab PO BID Hydrochlorothiazide Tablet (Hydrochlorothiazide) 12.5 Mg Tablet 2 Tab PO DAILY Vitals/I & O Vital Sign - Last 24 Hours 07/04/16 07/04/16 07/04/16 07/04/16 10:55 12:31 12:41 12:56 Temp 98.5 98.2 98.5 98.2 Pulse 66 83 83 67 Resp 18 14 14 16 B/P 98/56 118/71 99/54 Pulse Ox 93 96 100 100 O2 Delivery Room Air Nasal Cannula Nasal Cannula Nasal Cannula O2 Flow Rate 4.0 3 3 07/04/16 07/04/16 07/04/16 07/04/16 12:56 12:57 13:00 13:02 Pulse 78 Resp 18 B/P 130/61 Pulse Ox 100 94 99 O2 Delivery Nasal Cannula Nasal Cannula Room Air Nasal Cannula O2 Flow Rate 3 3.0 3.0 07/04/16 07/04/16 07/04/16 07/04/16 13:11 13:12 13:22 13:26 Temp 98.9 98.9 Pulse 67 71 Resp 14 14 B/P 99/55 104/65 Pulse Ox 98 98 98 93 O2 Delivery Nasal Cannula Nasal Cannula Nasal Cannula Room Air O2 Flow Rate 3 3.0 2.0 07/04/16 07/04/16 07/04/16 07/04/16 13:37 13:41 13:42 14:45 Pulse 64 Resp 14 B/P 103/58 Pulse Ox 94 99 94 O2 Delivery Room Air Room Air Room Air Room Air 07/04/16 07/04/16 07/04/16 07/04/16 14:45 14:45 14:52 15:15 Temp 97.9 97.9 Pulse 68 71 Resp 20 18 B/P 103/91 120/60 Pulse Ox 95 95 O2 Delivery Room Air Room Air Room Air 07/04/16 07/04/16 07/04/16 07/04/16 15:30 15:30 15:58 16:22 Pulse 65 81 B/P 111/63 129/62 Pulse Ox 96 97 O2 Delivery Room Air Room Air Room Air Room Air 07/04/16 07/04/16 07/04/16 07/04/16 16:39 17:58 19:28 20:00 Temp 98.0 98.0 Pulse 79 74 Resp 19 B/P 124/57 98/52 Pulse Ox 96 94 O2 Delivery Room Air Room Air Room Air Nasal Cannula O2 Flow Rate 3.0 07/04/16 07/04/16 07/05/16 07/05/16 21:09 23:13 05:42 06:12 Temp 98.0 98.0 Pulse 61 Resp 16 B/P 113/53 Pulse Ox 94 93 93 93 O2 Delivery Nasal Cannula Room Air Nasal Cannula Nasal Cannula O2 Flow Rate 2.0 2.0 2.0 07/05/16 07/05/16 07/05/16 07/05/16 07:00 07:45 08:27 08:35 Temp 98.3 98.3 Pulse 69 69 Resp 17 B/P 96/62 96/62 Pulse Ox 92 O2 Delivery Room Air Room Air Room Air 07/05/16 07/05/16 08:35 09:30 Pulse 69 B/P 96/62 O2 Delivery Room Air Intake and Output 07/04/16 07/04/16 07/05/16 15:00 23:00 07:00 Intake Total 600 ml 1270 ml 700 ml Output Total 75 ml Balance 600 ml 1195 ml 700 ml MIGUEL CRANDALL MD Jul 05, 2016 10:32
--- NOTE | 2016-07-05 10:54 | PDOC ---
PROGRESS NOTES Subjective Subjective Pt awake and pleasant. States pain is 50% better following vertebroplasty. Pt states she has a good appetite and normal output. Objective Objective Pt awake and alert. NAD. VSS. Afebrile. Lungs CTA bilat. Resp even and unlabored. Heart with RRR. No murmurs. Vital Signs Date Time Temp Pulse Resp B/P Pulse Ox O2 Delivery O2 Flow Rate FiO2 07/05/16 09:30 Room Air 07/05/16 08:35 69 96/62 07/05/16 07:00 98.3 17 92 98.3 07/05/16 06:12 2.0 Intake and Output 07/05/16 07:00 Intake Total 2570 ml Output Total 75 ml Balance 2495 ml Intake Oral 2020 ml IV Total 550 ml Output Urine Total 75 ml # Voids 8 Assessment Assessment Problems Medical Problems: (1) Chronic back pain Status: Acute (2) Intractable back pain Status: Acute Plan Plan of Care 1. Back pain -MRI on 06/26/16 with mild edema of S2, mild presacral edema and edema of superior sacrum. These could be due to sequelae of recent insufficiency sacral fx. -Repeat MRI on 07/03: "Findings of acute bilateral sacral insufficiency fractures." -Dr Fry consulting - injection on 07/03 -Dr Bess consulted - vertebroplasty on 07/04 Dc to [facility] today. Diet regular. Activity as tolerated. PT/OT eval and treat. Comment Review of Relevant I have reviewed the following items leo (where applicable) has been applied. Labs Laboratory Tests Test 07/03/16 17:30 Prothrombin Time 13.4SEC (11.7-14.0) Prothromb Time International Ratio 1.1 (0.8-1.1) Medications Current Medications Oxycodone/ Acetaminophen (Percocet 5/325) 1 tab 1X ONCE PO Last administered on 07/02/16 12:12; Start 07/02/16 at 12:30; Stop 07/02/16 at 12:31; Status DC Ketorolac Tromethamine (Toradol Im) 60 mg 1X ONCE IM Last administered on 07/02 12:40; Start 07/02/16 at 12:45; Stop 07/02/16 at 12:46; Status DC Diazepam (Valium) 2 mg 1X ONCE PO Last administered on 07/02/16 13:45; Start 07/02/16 at 13:45; Stop 07/02/16 at 13:46; Status DC Acetaminophen/ Hydrocodone Bitart (Lortab 5/325) 1 tab PRN Q4HRS PRN PO mild to moderate PAIN Last administered on 07/05/16 08:27; Start 07/02/16 at 16:45 Hydroxychloroquine Sulfate (Plaquenil) 200 mg BID PO Last administered on 08:35; Start 07/02/16 at 21:00 Metoprolol Succinate (Toprol Xl) 50 mg DAILY PO Last administered on 07/03/16 07:48; Start 07/03/16 at 09:00 Bupropion HCl (Wellbutrin Xl) 300 mg DAILY PO Last administered on 07/05/16 08 :27; Start 07/03/16 at 09:00 Duloxetine HCl (Cymbalta) 60 mg DAILY PO Last administered on 07/05/16 08:28; Start 07/03/16 at 09:00 Hydrochlorothiazide (Hydrodiuril) 25 mg DAILY PO Last administered on 07:48; Start 07/03/16 at 09:00 Losartan Potassium (Cozaar) 100 mg DAILY PO Last administered on 07/03/16 07: 48; Start 07/03/16 at 09:00 Topiramate (Topamax) 150 mg BID PO Last administered on 07/05/16 08:28; Start 07/02/16 at 21:00 Ziprasidone (Geodon) 80 mg BID PO Last administered on 07/05/16 08:32; Start 07/02/16 at 21:00 Ondansetron HCl (Zofran) 4 mg PRN Q4HRS PRN IV NAUSEA/VOMITING; Start 07/02/16 at 16:45 Morphine Sulfate 2 mg PRN Q2HR PRN IV PAIN; Start 07/02/16 at 16:45 Morphine Sulfate 4 mg PRN Q2HR PRN IV PAIN Last administered on 07/04/16 14:52 ; Start 07/02/16 at 16:45 Morphine Sulfate 6 mg PRN Q2HR PRN IV PAIN Last administered on 07/05/16 05:42 ; Start 07/02/16 at 16:45 Methylprednisolone Acetate (Depo-Medrol 40mg Vial) 40 mg 1X ONCE IM ; Start at 17:00; Stop 07/02/16 at 17:02; Status DC Bupivacaine HCl (Sensorcaine-Mpf 0.25%) 10 ml 1X ONCE IJ ; Start 07/02/16 at 17 :00; Stop 07/02/16 at 17:02; Status DC Lidocaine/Sodium Bicarbonate 20 ml 20 ml STK-MED ONCE IJ ; Start 07/04/16 at 10: 43; Stop 07/04/16 at 10:44; Status DC Ceftriaxone Sodium (Rocephin 1gm Ivpb For Omni) 50 ml @ 100 mls/hr 1X ONCE IV Last administered on 07/04/16 11:20; Start 07/04/16 at 11:15; Stop 07/04/16 at 11:44; Status DC Fentanyl Citrate (Fentanyl 2ml Vial) 100 mcg STK-MED ONCE .ROUTE ; Start at 11:15; Stop 07/04/16 at 11:16; Status DC Ketorolac Tromethamine (Toradol) 30 mg 1X PRN PRN IV MODERATE PAIN; Start 07/04 at 12:30; Stop 07/09/16 at 12:29 Fentanyl Citrate (Fentanyl 2ml Vial) 25 mcg PRN Q5MIN PRN IV MILD PAIN; Start 07/04/16 at 12:45; Stop 07/04/16 at 20:00; Status DC Fentanyl Citrate (Fentanyl 2ml Vial) 50 mcg PRN Q5MIN PRN IV MODERATE PAIN Last administered on 07/04/16 13:42; Start 07/04/16 at 12:45; Stop 07/04/16 at 20:00; Status DC Morphine Sulfate 1 mg 1 mg PRN Q10MIN PRN IV SEVERE PAIN Last administered on 13:22; Start 07/04/16 at 12:45; Stop 07/04/16 at 20:00; Status DC Lactated Ringer's (Iv Lactated Ringers) 1,000 ml @ 30 mls/hr Q24H IV ; Start at 12:43; Stop 07/04/16 at 16:06; Status DC Lidocaine HCl 2 ml 1X PRN PRN ID IV START; Start 07/04/16 at 12:45; Stop at 20:00; Status DC Hydromorphone HCl (Dilaudid) 0.5 mg PRN Q10MIN PRN IV SEV PAIN,Second choice; Start 07/04/16 at 12:45; Stop 07/04/16 at 20:00; Status DC Prochlorperazine Edisylate 5 mg 5 mg PACU PRN PRN IV NAUSEA; Start 07/04/16 at 12:45; Stop 07/04/16 at 20:00; Status DC Propofol (Diprivan) 20 ml @ As Directed STK-MED ONCE IV ; Start 07/04/16 at 12: 50; Stop 07/04/16 at 12:51; Status DC Active Scripts Active Reported Plaquenil (Hydroxychloroquine Sulfate) 200 Mg Tablet 200 Mg PO BID Geodon (Ziprasidone Hcl) 80 Mg Capsule 1 Cap PO BID Cymbalta (Duloxetine Hcl) 60 Mg Capsule.dr 1 Cap PO DAILY Benicar (Olmesartan Medoxomil) 20 Mg Tablet 1 Tab PO DAILY Wellbutrin Xl (Bupropion Hcl) 300 Mg Tab.er.24h 1 Tab PO DAILY Metoprolol Succinate ( Xl ) (Metoprolol Succinate) 25 Mg Tab.er.24h 2 Tab PO DAILY Topamax (Topiramate) 50 Mg Tablet 3 Tab PO BID Hydrochlorothiazide Tablet (Hydrochlorothiazide) 12.5 Mg Tablet 2 Tab PO DAILY Vitals/I & O Vital Sign - Last 24 Hours 07/04/16 07/04/16 07/04/16 07/04/16 10:55 12:31 12:41 12:56 Temp 98.5 98.2 98.5 98.2 Pulse 66 83 83 67 Resp 18 14 14 16 B/P 98/56 118/71 99/54 Pulse Ox 93 96 100 100 O2 Delivery Room Air Nasal Cannula Nasal Cannula Nasal Cannula O2 Flow Rate 4.0 3 3 07/04/16 07/04/16 07/04/16 07/04/16 12:56 12:57 13:00 13:02 Pulse 78 Resp 18 B/P 130/61 Pulse Ox 100 94 99 O2 Delivery Nasal Cannula Nasal Cannula Room Air Nasal Cannula O2 Flow Rate 3 3.0 3.0 07/04/16 07/04/16 07/04/16 07/04/16 13:11 13:12 13:22 13:26 Temp 98.9 98.9 Pulse 67 71 Resp 14 14 B/P 99/55 104/65 Pulse Ox 98 98 98 93 O2 Delivery Nasal Cannula Nasal Cannula Nasal Cannula Room Air O2 Flow Rate 3 3.0 2.0 07/04/16 07/04/16 07/04/16 07/04/16 13:37 13:41 13:42 14:45 Pulse 64 Resp 14 B/P 103/58 Pulse Ox 94 99 94 O2 Delivery Room Air Room Air Room Air Room Air 07/04/16 07/04/16 07/04/16 07/04/16 14:45 14:45 14:52 15:15 Temp 97.9 97.9 Pulse 68 71 Resp 20 18 B/P 103/91 120/60 Pulse Ox 95 95 O2 Delivery Room Air Room Air Room Air 07/04/16 07/04/16 07/04/16 07/04/16 15:30 15:30 15:58 16:22 Pulse 65 81 B/P 111/63 129/62 Pulse Ox 96 97 O2 Delivery Room Air Room Air Room Air Room Air 07/04/16 07/04/16 07/04/16 07/04/16 16:39 17:58 19:28 20:00 Temp 98.0 98.0 Pulse 79 74 Resp 19 B/P 124/57 98/52 Pulse Ox 96 94 O2 Delivery Room Air Room Air Room Air Nasal Cannula O2 Flow Rate 3.0 07/04/16 07/04/16 07/05/16 07/05/16 21:09 23:13 05:42 06:12 Temp 98.0 98.0 Pulse 61 Resp 16 B/P 113/53 Pulse Ox 94 93 93 93 O2 Delivery Nasal Cannula Room Air Nasal Cannula Nasal Cannula O2 Flow Rate 2.0 2.0 2.0 07/05/16 07/05/16 07/05/16 07/05/16 07:00 07:45 08:27 08:35 Temp 98.3 98.3 Pulse 69 69 Resp 17 B/P 96/62 96/62 Pulse Ox 92 O2 Delivery Room Air Room Air Room Air 07/05/16 07/05/16 08:35 09:30 Pulse 69 B/P 96/62 O2 Delivery Room Air Intake and Output 07/04/16 07/04/16 07/05/16 15:00 23:00 07:00 Intake Total 600 ml 1270 ml 700 ml Output Total 75 ml Balance 600 ml 1195 ml 700 ml SUKHDEV MAY MD Jul 05, 2016 10:54
[2016-07-05 11:04] VITALS: BP 118/75
--- NOTE | 2016-07-05 19:18 | DS ---
DATE OF DISCHARGE: 07/05/2016 DISCHARGE DIAGNOSES: 1. Bilateral insufficiency sacral fracture. 2. Intractable back pain. HISTORY OF PRESENT ILLNESS: This is a 55-year-old white female who is well known to me from followup in the clinic as well as a recent hospitalization on 06/27/2016. The patient presented to the Emergency Room on the date of admission with complaints of increasing lower back pain. Her family who accompanied her to the Emergency Room stated that the patient was unable to carry out her ADLs secondary to her pain. The patient was admitted to the hospital for pain control and further evaluation. SUMMARY OF STAY: Upon admission, Dr. Fry and Dr. Bess were both consulted. Dr. Fry did do an ARMANI on July 03. An MRI was repeated on July 03. Findings revealed acute bilateral sacral insufficiency fractures. Dr. Bess performed a vertebroplasty on July 04. On July 05, the patient stated that 50% of her pain was resolved. PT and OT had evaluated the patient on July 04 and believed that the patient would benefit from residential for rehabilitation. DIET: Regular. ACTIVITY: As tolerated. DISCHARGE MEDICATIONS: Listed on the medical record and have been addressed. The patient will use Lortab 5/325 one tablet p.o. q. 4 hours p.r.n. pain. FOLLOWUP: We will continue to follow the patient's care throughout her stay at the [facility]. The patient stated understanding of the discharge summary, denied further questions and will follow up accordingly. SUKHDEV MAY MD DR: JACOBY/bhargav JOB#: [id number] / [id number]
== END 2016-07-05 15:25 | DRG 516 ==
LOC: ER 10:57 → ED HOLD 13:37 → 5 SOUTH 15:17
PROVIDERS: ADMIT Family Medicine; ATTEND Family Medicine
PROC: 0QU13JZ Supplement Sacrum with Synthetic Substitute, Percutaneous Approach (ICD-10-PCS; principal; 2016-07-04 12:30)
DX: M84.48XA Pathological fracture, other site, initial encounter for fracture (principal); Z68.41 Body mass index [BMI] 40.0-44.9, adult; E66.9 Obesity, unspecified; E78.5 Hyperlipidemia, unspecified; F31.9 Bipolar disorder, unspecified; G62.9 Polyneuropathy, unspecified; G89.29 Other chronic pain; I10 Essential (primary) hypertension; M32.9 Systemic lupus erythematosus, unspecified; M70.62 Trochanteric bursitis, left hip; F32.9 Major depressive disorder, single episode, unspecified; F41.9 Anxiety disorder, unspecified; M19.90 Unspecified osteoarthritis, unspecified site; N39.41 Urge incontinence; Z96.653 Presence of artificial knee joint, bilateral; M70.61 Trochanteric bursitis, right hip; Z80.3 Family history of malignant neoplasm of breast; Z83.3 Family history of diabetes mellitus; Z90.49 Acquired absence of other specified parts of digestive tract; Z90.710 Acquired absence of both cervix and uterus; Z90.722 Acquired absence of ovaries, bilateral; Z88.0 Allergy status to penicillin; Z88.8 Allergy status to other drugs, medicaments and biological substances
CPT/HCPCS: 22511; 36415; 72195; 85610; 96372; C1758; C1892; J0690; J1885; J2270; J2704; J3010; 97530; 99285-25

== ENCOUNTER → 2016-11-27 | Outpatient (CLI) | payer MEDICARE, MEDICAID ==
[~2016-11-27] MED LIST changes: -OLME20TA PO; +OLME20TA19 PO
--- NOTE | 2016-11-27 10:06 | RAD ---
Examination: Single frontal view the pelvis History: History of midline pain when walking Comparison: None available Findings: The bilateral femoral heads are within the acetabula. Kyphoplasty changes identified in the sacrum. The sacroiliac joint grossly appears unremarkable. Mild joint space loss identified in the bilateral hip joint likely mild degeneration. Impression: 1. No acute osseous findings.
== END | disposition home or self-care (01) ==
LOC: RAD 09:36
PROVIDERS: ATTEND Family Medicine
DX: R10.2 Pelvic and perineal pain (principal)
CPT/HCPCS: 72170

== ENCOUNTER → 2017-03-19 | Outpatient (CLI) | payer MEDICARE, MEDICAID ==
[~2017-03-19] MED LIST changes: +ACET325T9 PO; +CLON0.5T3 PO; +GABA-585 PO; +HYDR-971 PO; +METO-239 PO; -METO25TA9 PO
--- NOTE | 2017-03-19 15:46 | PAIN ---
DATE OF SERVICE: 03/19/2017 INITIAL CONSULTATION FOR PAIN CLINIC DATE OF SERVICE: 03/19/2017 CHIEF COMPLAINT: Low back, bilateral lower extremity pain. HISTORY OF PRESENT ILLNESS: This is a 56-year-old female who presents with history of pain for about 9 months, low back, bilateral lower extremities, radiating in the posterior gluteus, posterior thighs, lower legs, occasionally with some tight cramping pain, worse with ambulation, worse with standing and walking. It is a constant throbbing pain. It is radiating to bilateral lower extremities, right equal to left. Essentially, the patient reports this came about spontaneously without any result of any injury or accident about 9 months ago. She was diagnosed with bilateral sacral ala fractures. These have been treated with sacroplasty, but still with some significant pain residual. The patient's pain reports the pain is better after the sacroplasties, but still significantly painful. The patient reports again worse with standing and walking, sitting is decreasing the pain to some extent, but lying down is difficult and she is awakes from sleep 3 or 4 times from the pain. It does not affect her bowel or bladder control, but does affect her ability to walk. She uses a cane in her right hand to ambulate. The patient has not tried any form of physical therapies at this time or chiropractic treatments or other modalities. She is doing some stretching on her own every morning she reports, she has taken hydrocodone, which does help decrease the pain, but is only taking it every 8 hours and reports it only lasts about every 5 hours. The patient reports no other modalities or therapies that have been tried for her at this point. The patient reports no loss of motor function, but significant fatigability with the lower extremities, again essentially right equal to left with pain and radiating pain into the posterior gluteus, posterior thighs, in L5-S1 distribution. The patient did have an MRI scan of the lumbar spine on the 02/04/2017 showing an interval increase in anterolisthesis of L5 on S1, probably due to underlying facet disease, left L5 spondylolysis, bilateral sacroplasty with potential left pars defect at L5-S1 and chronic discogenic endplate changes L5 to S1. Also, new from previous scan from 2011. The patient rates her disability rating from 0-10, 10 being the worst, as a 10 with family and home responsibilities as well as recreation, 2 with self care and 0 with life support activities. The patient reports she is currently using her cane at all times with ambulation. PAST MEDICAL HISTORY: Significant for hypertension, arthritis. PREVIOUS SURGERY: Includes laparoscopic cholecystectomy, x 3, appendectomy, hysterectomy, multiple foot surgeries, knee replacements x 3 on the right and once on the left. Previous skin graft from [facility] as a small child. CURRENT MEDICATIONS: Geodon, Cymbalta, Benicar, Wellbutrin, metoprolol, hydrochlorothiazide, Topamax, gabapentin, clonazepam, Tylenol, Plaquenil and hydrocodone. ALLERGIES: THE PATIENT IS ALLERGIC TO LISINOPRIL, WHICH CAUSES COUGH. FAMILY HISTORY: Significant for cancers. SOCIAL HISTORY: The patient does not smoke, does not drink alcohol, is currently disabled and lives locally in [place], [place]. REVIEW OF SYSTEMS: The patient's review of systems is positive for those items mentioned in history of present illness. All systems reviewed and otherwise negative. It is complete, full and well documented on the patient's chart. PHYSICAL EXAMINATION: VITAL SIGNS: The patient's blood pressure is 117/77, pulse is 70, respirations 18, temperature 98.1 degrees Fahrenheit. Height is 5 feet 10 inches, weight 239 pounds. GENERAL: The patient is awake, alert, oriented, appropriate, very pleasant demeanor. HEENT: Head shows normocephalic, atraumatic. Extraocular movements are intact and symmetrical. Oral cavity: Mucous membranes moist and pink. Dentition is intact. NECK: Shows anterior throat supple without palpable lymphadenopathy noted. Swallow reflex is symmetrical. CHEST: Shows normal on inspection. Breath sounds are clear to auscultation bilaterally. HEART: Shows S1 and S2 clear. ABDOMEN: Soft, nontender, nondistended. No palpable organomegaly. No rebound or guarding demonstrated. BACK: Shows spine grossly midline. Normal appearing thoracic kyphosis and lumbar lordotic curvature. No previous lesions or bruises are noted with inspection. Lumbar paraspinous musculature shows symmetrical, but with palpation shows very firm, tender musculature, mostly in the lower distribution of paraspinous muscles diffusely bilaterally, right equal to left and tender without specific trigger points, without radiation of pain, no tenderness over the sacrum or sacroiliac regions with even deep palpation in both these regions. The patient's lower extremities showed deep tendon reflexes at 1+ in the patellar and tendo calcaneus tendons are equal. Motor exam is strong with 5/5 dorsiflexion, extension, quadriceps and hamstring flexion are intact. Peripheral pulses are 1+ posterior tibial and dorsalis pedis pulses. No peripheral edema is noted. Straight leg raising is noted to be negative for reproduction of radicular symptoms bilaterally. Gaenslen's and Stew's maneuvers are negative for reproduction of pain bilaterally as well. The patient is able to stand. It is difficult to try to stand on her toes as she loses balance very quickly. The patient is ambulating with a slight limping gait, appears to favor the right lower extremity compared to the left and is using a cane in her right hand to ambulate. IMPRESSION:1. This is a 56-year-old female with a 9-month history of increasing low back pain status post sacral ala fractures with sacroplasties with persistent radicular pain in the L5-S1 distribution bilaterally, left equal to right. 2. Arthritis. 3. Hypertension. PLAN: Options were discussed with the patient and the patient's mother, who accompanies her to visit today and we will preauthorize the patient for a lumbar epidural steroid injection. We discussed the procedure using description as well as anatomical models to describe the procedure. The patient will wait for preauthorization. In the meantime, we will try Medrol Dosepak. The patient was given instructions and side effects to be aware of with the medication and will follow up in approximately 2 weeks. We will plan on lumbar epidural steroid injection at that time. YUSUF VIERA MD DR: YOVANI/bhargav JOB#: [id number] / [id number]
== END | disposition home or self-care (01) ==
LOC: PNCL 13:04
PROVIDERS: ATTEND Anesthesiology
DX: S32.19XD Other fracture of sacrum, subsequent encounter for fracture with routine healing (principal); I10 Essential (primary) hypertension; M54.5 Low back pain; X58.XXXD Exposure to other specified factors, subsequent encounter
CPT/HCPCS: G0463

== ENCOUNTER → 2017-03-21 | Outpatient (CLI) | payer MEDICARE, MEDICAID ==
[2017-03-21 14:26] LABS: BASO # 0.1 x10^3/uL (0.0-0.2); BASO % 1 % (0-3); EOS % 1 % (0-3); HEMOGLOBIN 15.7 g/dL (12.0-15.5); LYMPH # 3.1 x10^3/uL (1.0-4.8); LYMPH % 31 % (24-48); MEAN CORPUSCULAR HEMOGLOBIN 31 pg (25-35); MEAN CORPUSCULAR HGB CONC 34 g/dL (31-37); MEAN CORPUSCULAR VOLUME 92 fL (79-100); MONO % 7 % (0-9); NEUT % 60 % (31-73); PLATELET COUNT 392 x10^3/uL (140-400); RED CELL DISTRIBUTION WIDTH 13.1 % (11.5-14.5)
== END | disposition home or self-care (01) ==
LOC: LAB 14:01
PROVIDERS: ATTEND Nurse Practitioner Gerontology
DX: M25.561 Pain in right knee (principal)
CPT/HCPCS: 36415; 85025; 85651; 86141

== ENCOUNTER → 2017-04-04 | Outpatient (CLI) | payer MEDICARE, MEDICAID ==
[~2017-04-04] MED LIST changes: +IOHEXOL 180 MG/ML 10 ML VIAL. ONE; +methylPREDNISolone ACETATE 40 MG/ML VIAL. ONE; +methylPREDNISolone ACETATE 80 MG/ML VIAL. ONE
--- NOTE | 2017-04-04 21:46 | PAIN ---
DATE OF SERVICE: 04/04/2017 DIAGNOSES: Lumbar radiculopathy with lumbar spondylolisthesis and low back pain. HISTORY OF PRESENT ILLNESS: The patient is a 56-year-old female who returns for followup status post initial evaluation and preauthorization for lumbar epidural steroid injection today. The patient returns reporting significant decrease in pain after Medrol Dosepak by about 80-90%. During the Medrol course, the patient reports after that time, the pain returned in the low back and into the bilateral lower extremities as it was previously. The patient reports no new motor or sensory deficits, no new bowel or bladder incontinence or other complaints, but just significant pain in the low back and lower extremities as noted. The patient reports no new motor or sensory deficits, no new complaints. The patient reports her pain is an 8 on a scale of 10 at its worst, 6 on average and a 2-3 at its least and is a 2-3 today. PHYSICAL EXAMINATION: VITAL SIGNS: The patient's blood pressure 114/69, pulse 77, respirations 16, temperature is 98.2 degrees Fahrenheit. Weight is 248 pounds. GENERAL: The patient is awake, alert, oriented, appropriate, is a very pleasant demeanor. HEENT: Shows normocephalic, atraumatic. The patient wears eyeglasses. Extraocular movements are intact, symmetrical. Oral cavity shows mucous membranes moist and pink. Dentition is intact. NECK: Shows anterior throat supple without palpable lymphadenopathy noted. Swallow reflex is symmetrical. CHEST: Shows normal on inspection. Breath sounds are clear to auscultation bilaterally. HEART: Shows S1 and S2 clear. ABDOMEN: Obese, soft, nontender, nondistended. MUSCULOSKELETAL: Back shows spine grossly in the midline. Lumbar paraspinous muscle shows some mild to moderate tenderness with palpation in the middle and lower distribution of the paraspinous muscles bilaterally without radiation. The patient has full rotational motion of lumbar spine without difficulty. Lower extremities showed deep tendon reflexes 1+ in the patellar and tendo-calcaneus tendons. Motor exam is strong with 5/5 dorsiflexion, extension, quadriceps and hamstring flexion. PLAN: Options were discussed with the patient and the patient's old chart was reviewed as her current medication regimen updated. Current review of systems updated today as well. We will proceed with a lumbar epidural steroid injection today with fluoroscopic guidance. Risks were again discussed including, but not limited to bleeding, infection, possibility of epidural hematoma, subsequent neurologic compromise, dural puncture, headaches, spinal cord and/or nerve damage, side effects of steroid medication and poor results regarding pain control. The patient understands and wishes to proceed. The patient will return to the clinic in approximately 2 weeks for followup, was counseled on return appointment, activity level and side effects to be aware of. DIAGNOSIS: Lumbar radiculopathy with lumbar spondylolisthesis. PROCEDURE: Lumbar epidural steroid injection in translaminar approach at the L5-S1 level using C-arm fluoroscopic guidance under sterile prep and drape using local anesthetic. MEDICATION INJECTED: A total of 120 mg Depo-Medrol plus 10 mL preservative-free normal saline and 2 mL Isovue for contrast. CONDITION AT DISCHARGE: Stable. The patient tolerated procedure well, had no complications. YUSUF VIERA MD DR: YOVANI/bhargav JOB#: [id number] / [id number]
== END | disposition home or self-care (01) ==
LOC: PNCL 13:12
PROVIDERS: ATTEND Anesthesiology
DX: M43.16 Spondylolisthesis, lumbar region (principal); M54.10 Radiculopathy, site unspecified; E78.00 Pure hypercholesterolemia, unspecified; I10 Essential (primary) hypertension; K21.9 Gastro-esophageal reflux disease without esophagitis; F41.9 Anxiety disorder, unspecified; F32.9 Major depressive disorder, single episode, unspecified; Z88.8 Allergy status to other drugs, medicaments and biological substances; Z86.69 Personal history of other diseases of the nervous system and sense organs; Z90.49 Acquired absence of other specified parts of digestive tract; Z90.710 Acquired absence of both cervix and uterus
CPT/HCPCS: 62323; J1030; J1040

== ENCOUNTER → 2017-05-08 | Outpatient (CLI) | payer MEDICARE, MEDICAID ==
--- NOTE | 2017-05-08 23:00 | PAIN ---
DATE OF SERVICE: 05/08/2017 DIAGNOSES: Lumbar radiculopathy with lumbar spondylosis and low back pain. HISTORY OF PRESENT ILLNESS: The patient is a 56-year-old female who returns for followup status post lumbar epidural steroid injection x 2. The patient reports about 25% improvement overall, but had one week of almost 100% decreased pain in the low back after her last injection. The patient reports at that time the pain began to return fairly quickly and across the low back and the bilateral lower extremities, but mostly in the low back. The patient reports it is a 10 on scale of 10 at its worst, 7 on average, 6 at its least and is a 7 today. The patient reports aching, sharp, shooting, stabbing, becoming more constant, more severe as time goes on, again worse in the low back than the lower extremities. The patient reports it is better with sitting or lying down, worse with standing, walking, changing positions, stooping or bending forward with repetitive motion such as doing yardwork. The patient reports she sleeps about 8 hours at night and does not awaken her from sleep. She feels much better lying down. PHYSICAL EXAMINATION: VITAL SIGNS: The patient's blood pressure is 137/86, pulse 87, respirations are 18, temperature 98.2 degrees Fahrenheit. Height is 5 feet 2 inches and weight is 246 pounds. GENERAL: The patient is awake, alert, oriented, appropriate, very pleasant demeanor. HEENT: Head shows normocephalic and atraumatic. Extraocular movements are intact, symmetrical. Oral cavity: Mucous membranes moist and pink. NECK: Shows anterior throat is supple. CHEST: Shows normal on inspection. Breath sounds are clear to auscultation bilaterally. HEART: Shows S1 and S2 clear. ABDOMEN: Obese, soft, nontender and nondistended. No palpable organomegaly is noted. BACK: Shows spine grossly midline. Slight exaggeration of thoracic kyphosis with mild flattening of lumbar lordotic curvature. Lumbar paraspinous muscle shows some moderate tenderness with palpation bilaterally only diffusely without radiation. EXTREMITIES: Lower extremities show deep tendon reflexes 1+ in the patellar and tendo calcaneus tendons are equal. Motor exam is strong with 5/5 dorsiflexion, extension, quadriceps and hamstring flexion and are symmetrical as well. Peripheral pulses are 1+ posterior tibial. Options were discussed with the patient. The patient's old chart was reviewed as her current medication regimen and updated. Current review of systems updated today as well. We will proceed with a third in the series of lumbar epidural steroid injection with fluoroscopic guidance. Risks were discussed again including, but not limited to bleeding, infection, possibility of epidural hematoma, subsequent neurologic compromise, dural puncture, headaches, spinal cord and/or nerve damage, side effects of steroid medication and poor results regarding pain control. The patient understands and wished to proceed. The patient to return to the clinic in approximately 2 weeks for followup and was counseled on return appointment, activity level and side effects to be aware of. DIAGNOSIS: Lumbar radiculopathy with lumbar spondylosis and low back pain. PROCEDURE: Lumbar epidural steroid injection, translaminar approach at the L5-S1 level using C-arm fluoroscopic guidance under sterile prep and drape using local anesthetic. MEDICATION INJECTED: A total of 120 mg Depo-Medrol plus 10 mL of preservative-free normal saline and 2 mL of Isovue contrast. CONDITION AT DISCHARGE: Stable. The patient tolerated the procedure well and had no complications. YUSUF VIERA MD DR: YOVANI/bhargav JOB#: [id number] / [id number]
== END ==
LOC: PNCL 12:45
PROVIDERS: ATTEND Anesthesiology
DX: M47.26 Other spondylosis with radiculopathy, lumbar region (principal); M54.5 Low back pain; E78.00 Pure hypercholesterolemia, unspecified; I10 Essential (primary) hypertension; K21.9 Gastro-esophageal reflux disease without esophagitis; E66.9 Obesity, unspecified; M32.9 Systemic lupus erythematosus, unspecified; F41.9 Anxiety disorder, unspecified; F31.9 Bipolar disorder, unspecified; Z90.710 Acquired absence of both cervix and uterus; M19.90 Unspecified osteoarthritis, unspecified site; Z96.653 Presence of artificial knee joint, bilateral; Z90.49 Acquired absence of other specified parts of digestive tract; Z98.890 Other specified postprocedural states
CPT/HCPCS: 62323; J1030; J1040

== ENCOUNTER → 2017-05-22 | Outpatient (CLI) | payer MEDICARE, MEDICAID ==
[~2017-05-22] MED LIST changes: -ACET325T9 PO; +BUPIVACAINE MPF 0.25% 10 ML VIAL.; -BUPR300T3 PO; -CLON0.5T3 PO; -DULO60CA6 PO; -GABA-585 PO; -HYDR-2678 PO; -HYDR-971 PO; -HYDR12.58 PO; -HYDR200T PO; +IOHEXOL 180 MG/ML 10 ML VIAL.; -IOHEXOL 180 MG/ML 10 ML VIAL. ONE; -METO-239 PO; -OLME20TA19 PO; -TOPI50TA38 PO; -ZIPR80CA2 PO; +methylPREDNISolone ACETATE 40 MG/ML VIAL.; -methylPREDNISolone ACETATE 40 MG/ML VIAL. ONE; +methylPREDNISolone ACETATE 80 MG/ML VIAL.; -methylPREDNISolone ACETATE 80 MG/ML VIAL. ONE
== END | disposition home or self-care (01) ==
LOC: PNCL 13:07
DX: M47.26 Other spondylosis with radiculopathy, lumbar region (principal); E78.00 Pure hypercholesterolemia, unspecified; I10 Essential (primary) hypertension; E66.9 Obesity, unspecified; K21.9 Gastro-esophageal reflux disease without esophagitis; M19.90 Unspecified osteoarthritis, unspecified site; F31.9 Bipolar disorder, unspecified; F41.0 Panic disorder [episodic paroxysmal anxiety]; Z90.49 Acquired absence of other specified parts of digestive tract; Z90.710 Acquired absence of both cervix and uterus; Z88.8 Allergy status to other drugs, medicaments and biological substances
CPT/HCPCS: 64493; 64494; J1030; J1040; J3490

== ENCOUNTER → 2017-06-06 | Outpatient (CLI) | payer MEDICARE, MEDICAID | END | disposition home or self-care (01) | LOC: PNCL 12:50 | DX: M47.896 Other spondylosis, lumbar region (principal); M54.16 Radiculopathy, lumbar region | CPT/HCPCS: G0463 ==

== ENCOUNTER 2017-10-08 16:50 | Emergency (ER) | payer MEDICARE, MEDICAID ==
[2017-10-08] MEDS ORDERED: POTASSIUM CHLORIDE 20MEQ 50 ML IV (17:15)
[2017-10-08] MEDS: POTASSIUM CHLORIDE 20 MEQ TABLET.ER. PO (17:37)
[2017-10-08 17:38] LABS: ADD MAN DIFF? NO
[2017-10-08] MEDS: POTASSIUM CHLORIDE 40 MEQ in IV NORMAL SALINE 500ML BAG 500 ML IV (17:39)
[2017-10-08 17:40] LABS: BASO # 0.1 x10^3/uL (0.0-0.2); BASO % 1 % (0-3); EOS # 0.1 x10^3/uL (0.0-0.7); EOS % 2 % (0-3); HEMATOCRIT 40.5 % (36.0-47.0); HEMOGLOBIN 13.9 g/dL (12.0-15.5); LYMPH # 2.5 x10^3/uL (1.0-4.8); LYMPH % 35 % (24-48); MEAN CORPUSCULAR HEMOGLOBIN 31 pg (25-35); MEAN CORPUSCULAR HGB CONC 34 g/dL (31-37); MEAN CORPUSCULAR VOLUME 90 fL (79-100); MONO # 0.6 x10^3/uL (0.0-1.1); MONO % 8 % (0-9); NEUT % 54 % (31-73); PLATELET COUNT 327 x10^3/uL (140-400); RED CELL DISTRIBUTION WIDTH 13.2 % (11.5-14.5); WHITE BLOOD COUNT 7.3 x10^3/uL (4.0-11.0)
[2017-10-08 17:49] LABS: ANION GAP 10 (6-14); BLOOD UREA NITROGEN 10 mg/dL (7-20); CALCIUM 9.6 mg/dL (8.5-10.1); CARBON DIOXIDE 26 mmol/L (21-32); CHLORIDE 98 mmol/L (98-107); CREATININE 1.1 mg/dL (0.6-1.0); GFR 51.6; GLUCOSE 93 mg/dL (70-99); MAGNESIUM 2.1 mg/dL (1.8-2.4); SODIUM 134 mmol/L (136-145)
[2017-10-08 17:52] LABS: POTASSIUM 2.6 mmol/L (3.5-5.1)
[2017-10-08 18:00] LABS: NT-PRO BNP 69 pg/mL (0-124)
== END 2017-10-08 22:37 | disposition home or self-care (01) ==
LOC: ER 16:50
DX: E87.6 Hypokalemia (principal); I10 Essential (primary) hypertension; M32.9 Systemic lupus erythematosus, unspecified; F31.9 Bipolar disorder, unspecified; Z87.891 Personal history of nicotine dependence; Z88.8 Allergy status to other drugs, medicaments and biological substances
CPT/HCPCS: 36415; 80048; 83735; 83880; 85025; 93005; 96365; 99285-25; J7040

== ENCOUNTER → 2017-10-08 | Outpatient (CLI) | payer MEDICAID, MEDICARE ==
[2017-10-08 14:34] LABS: ANION GAP 12 (6-14); BLOOD UREA NITROGEN 11 mg/dL (7-20); CARBON DIOXIDE 28 mmol/L (21-32); CHLORIDE 97 mmol/L (98-107); GFR 57.6; SODIUM 137 mmol/L (136-145)
[2017-10-08 14:51] LABS: POTASSIUM 2.7 mmol/L (3.5-5.1)
== END | disposition home or self-care (01) ==
LOC: LAB 13:59
DX: G25.0 Essential tremor (principal); I10 Essential (primary) hypertension; E78.5 Hyperlipidemia, unspecified; E78.00 Pure hypercholesterolemia, unspecified; E87.6 Hypokalemia; E55.9 Vitamin D deficiency, unspecified
CPT/HCPCS: 36415; 80051; 82306; 82565; 84520

== ENCOUNTER → 2018-06-18 | Outpatient (CLI) | payer MEDICARE, MEDICAID ==
[2017-10-08 22:25] VITALS: BP 99/56
[~2018-06-18] MED LIST changes: +ACET325T9 PO; -BUPIVACAINE MPF 0.25% 10 ML VIAL.; +BUPR300T3 PO; +CLON0.5T11 PO; +DULO60CA6 PO; +GABA-585 PO; +HYDR-2678 PO; +HYDR-3164 PO; +HYDR12.58 PO; +HYDR200T71 PO; -IOHEXOL 180 MG/ML 10 ML VIAL.; +METO-239 PO; +OLME20TA17 PO; +POTA20TA82 PO; +TOPI50TA38 PO; +ZIPR80CA2 PO; -methylPREDNISolone ACETATE 40 MG/ML VIAL.; -methylPREDNISolone ACETATE 80 MG/ML VIAL.
[2018-06-18 16:13] LABS: ALBUMIN 3.4 g/dL (3.4-5.0); ALBUMIN/GLOBULIN RATIO 0.9 (1.0-1.7); CALCIUM 9.4 mg/dL (8.5-10.1); CREATININE 0.9 mg/dL (0.6-1.0); GFR 64.8; POTASSIUM 4.1 mmol/L (3.5-5.1); TOTAL BILIRUBIN 0.3 mg/dL (0.2-1.0); TOTAL PROTEIN 7.4 g/dL (6.4-8.2)
== END | disposition home or self-care (01) ==
LOC: LAB 15:14
PROVIDERS: ATTEND Psychiatry & Neurology Neurology
DX: G62.89 Other specified polyneuropathies (principal); G25.0 Essential tremor
CPT/HCPCS: 36415; 80053; 84443

== ENCOUNTER 2018-08-17 13:39 | Emergency (ER) | payer MEDICARE, MEDICAID ==
[~2018-08-17] VITALS: Ht 157.5 cm; Wt 111.1 kg
[2018-08-17 15:02] VITALS: BP 126/82
--- NOTE | 2018-08-17 15:50 | PHYS DOC ---
Past Medical History Past Medical History: Anxiety, Bipolar, Depression, Hypertension, Other Additional Past Medical Histor: lupus, Peripheral edema Past Surgical History: Appendectomy, Cholecystectomy, Hysterectomy, Knee Replacement, Other Additional Past Surgical Histo: bilateral knee replacement, rt arm skin graft Alcohol Use: None Drug Use: None Adult General Chief Complaint Chief Complaint: KNEE INJURY HPI HPI 57-year-old female presents to ER with complaints of left knee pain/swelling which has been ongoing for past few wks. She reports she slipped a few wks ago when walking her dog causing her lt knee to twist. She reports she had been evaluated by her PCP after injury. Pt reports today pain increased and so she came to ER for xray. Pt denies any additional injury to lt LE. She denies any other injuries. She reports she has been able to bear weight but has increased pain when she does walk. She denies distal swelling in lt LE or hip/ankle/foot pain. She reports she has history of bilateral knee replacements. Patient took her prescribed hydrocodone this morning. She reports she is unable to take NSAIDs due to GI irritation. Review of Systems Review of Systems Constitutional: Denies fever or chills [] Respiratory: Denies cough or shortness of breath [] Cardiovascular: No additional information not addressed in HPI [] : Denies urinary sxs Musculoskeletal: Denies back pain. Reports lt knee pain/swelling and increased pain lt knee w/walking/ROM Integument: Denies rash, redness or skin lesions [] Neurologic: Denies focal weakness or sensory changes [] All other systems were reviewed and found to be within normal limits, except as documented in this note. Current Medications Current Medications Current Medications Medications (Trade) Dose Ordered Sig/Sydni Start Time Stop Time Status Last Admin Dose Admin Lidocaine (Lidoderm) 1 patch DAILY 08/17/18 16:00 08/17/18 17:57 DC 08/17/18 15:53 1 PATCH Allergies Allergies Allergies Coded Allergies Type Severity Reaction Last Updated Verified lisinopril Adverse Reaction Intermediate 06/25/16 Yes Physical Exam Physical Exam Constitutional: Well developed, well nourished, no acute distress, non-toxic appearance. [] HENT: Normocephalic, atraumatic, oropharynx moist, nose normal. [] Eyes: Pupils equal, conjunctiva normal, no discharge. [] Neck: Normal range of motion, no tenderness on mid line cspine- supple, no stridor. [] Cardiovascular: Heart rate regular rhythm, no murmur [] Lungs & Thorax: Bilateral breath sounds clear to auscultation- resp equal/nonlabored Skin: Warm, dry, no erythema, no rash. [] Back: No tenderness mid line spine- full ROM Extremities: Pelvis stable/nontender. No cyanosis, no clubbing, ROM intact rt LE no edema/tenderness. Tender lt anterior knee- healed surgical scar midline- no ecchymosis/erythema- does appear swollen. No palp. deformity. Decreased ROM w/pt reporting increased pain w/movements. Calf size symmetric bilat. and nontender. No lt ankle/foot tenderness or swelling. Full ROM. 2+ bilat. dorsalis pedis/posterior tibial. Neurologic: Alert and oriented X 3, normal motor function, normal sensory function, no focal deficits noted. [] Psychologic: Affect normal, judgement normal, mood normal. [] Current Patient Data Vital Signs EKG EKG [] Radiology/Procedures Radiology/Procedures PROCEDURE: KNEE LEFT 3V EXAM: Left knee, 3 views. HISTORY: Pain. COMPARISON: None. FINDINGS: 3 views left knee are obtained. There is a left knee arthroplasty in expected position. There is no evidence of arthroplasty loosening or periprosthetic fracture. There is a trace left knee effusion. IMPRESSION: 1. Left knee arthroplasty in expected position. 2. Trace left knee effusion. Electronically signed by: Shellie Witt MD (08/17/2018 5:36 PM) [facility] DICTATED and SIGNED BY: SHELLIE WITT MD DATE: 08/17/18 173 Course & Med Decision Making Course & Med Decision Making Pertinent Labs and Imaging studies reviewed. (See chart for details) Pt was evaluated in the ER for c/o lt knee pain/swelling which has been ongoing for past few wks after mechanical fall. Xray lt knee with report of trace effusion- no other acute findings. Xray results discussed with pt. Lidoderm patch was applied to area of tenderness lt anterior knee with pt reporting improvement in pain. Toro wrap was applied to lt knee with pt reporting additional pain relief with wrap while ambulating. Pt remained PMS intact lt LE prior to and following wrap application. RICE acronym was discussed. Pt encouraged to use her walker while ambulating. Discussed need for f/u with orthop. doctor- will provide ortho referral info on d/c paperwork. Pt has Rx's pain meds she can take for pain. Education provided on s&s to return to ER for and d/c instructions were discussed. Lyssa Disclaimer Armandoon Disclaimer This electronic medical record was generated, in whole or in part, using a voice recognition dictation system. Departure Departure Impression: Primary Impression: Knee pain, left Disposition: HOME, SELF-CARE Condition: STABLE Referrals: SUKHDEV MAY MD (PCP) NEIDA HANDY II, MD Patient Instructions: Fall Prevention and Home Safety, Knee Pain, Knee Wraps (Elastic Bandage) and RICE, Walker Use Additional Instructions: If pain continues follow-up with orthopedic doctor for reevaluation and further care. Wear the Toro wrap to support the left knee when walking. Usually walker to prevent falls and to improve stability. Take prescribed pain medication as directed. Apply ice to affected area every 3- 4 hours for 20-30 minutes at a time avoid direct ice contact to skin. Use Lidoderm patch prescription as directed. Remove every 12 hours and reapply as needed. ALLISON MACIAS APRN Aug 17, 2018 15:50
[2018-08-17] MEDS ORDERED: LIDOCAINE (700MG/PATCH) PATCH. TD SCH (16:00)
--- NOTE | 2018-08-17 17:39 | RAD ---
EXAM: Left knee, 3 views. HISTORY: Pain. COMPARISON: None. FINDINGS: 3 views left knee are obtained. There is a left knee arthroplasty in expected position. There is no evidence of arthroplasty loosening or periprosthetic fracture. There is a trace left knee effusion. IMPRESSION: 1. Left knee arthroplasty in expected position. 2. Trace left knee effusion. Electronically signed by: Gaby Parkinson MD (08/17/2018 5:36 PM) [facility]
== END 2018-08-17 17:35 | disposition home or self-care (01) ==
LOC: ER 13:39
DX: M25.562 Pain in left knee (principal); F41.9 Anxiety disorder, unspecified; F31.9 Bipolar disorder, unspecified; I10 Essential (primary) hypertension; Z90.49 Acquired absence of other specified parts of digestive tract; Z90.89 Acquired absence of other organs; Z90.710 Acquired absence of both cervix and uterus; Z96.653 Presence of artificial knee joint, bilateral; Z88.8 Allergy status to other drugs, medicaments and biological substances
CPT/HCPCS: 73562; 99283

== ENCOUNTER → 2018-08-29 | Outpatient (CLI) | payer MEDICARE, MEDICAID ==
[2018-08-17 15:02] VITALS: BP 126/82
[2018-08-29 13:52] LABS: FREE T4 0.94 ng/dL (0.76-1.46)
== END | disposition home or self-care (01) ==
LOC: LAB 12:52
PROVIDERS: ATTEND Psychiatry & Neurology Neurology
DX: G25.0 Essential tremor (principal)
CPT/HCPCS: 36415; 84436; 84439; 84481

== ENCOUNTER 2019-02-01 00:33 | Emergency (ER) | payer MEDICARE, MEDICAID ==
[~2019-02-01] VITALS: Ht 157.5 cm; Wt 111.1 kg
[~2019-02-01 00:33] MED LIST changes: +CALC1TAB67 PO; +CHOL10003 PO; +CLON-77 PO; -CLON0.5T11 PO; +FURO20TA3 PO; +HYDR-2765 PO; +OXCA300T19 PO; +PRED-220 PO
--- NOTE | 2019-02-01 00:39 | PHYS DOC ---
Past Medical History Past Medical History: Hypertension Additional Past Medical Histor: LUPUS, OSTEOPORSIS Past Surgical History: Appendectomy, Colectomy, , Hysterectomy, Knee Replacement Additional Past Surgical Histo: SKIN GRAFTING Alcohol Use: None Drug Use: None Adult General Chief Complaint Chief Complaint: ALTERED MENTAL STATUS [facility] Patient is a 58 year old female presenting with chief complaint of altered mental status just feels out of it this started after she took Ambien she had she took 2 Biaxin and she was kind of shaky just feeling dizzy and just not really herself and she didn't know where she was. No chest pain no fever mild headache currently feeling a little bit better but still a little out of it Review of Systems Review of Systems Constitutional: Denies fever or chills [] Eyes: Denies change in visual acuity, redness, or eye pain [] HENT: Denies nasal congestion or sore throat [] Respiratory: Denies cough or shortness of breath [] Cardiovascular: No additional information not addressed in HPI [] GI: Denies abdominal pain, nausea, vomiting, bloody stools or diarrhea [] Neurologic: Denies headache, focal weakness or sensory changes [] Endocrine: Denies polyuria or polydipsia [] All other systems were reviewed and found to be within normal limits, except as documented in this note. Current Medications Current Medications Current Medications Medications (Trade) Dose Ordered Sig/Sydni Start Time Stop Time Status Last Admin Dose Admin Ceftriaxone Sodium (Rocephin) 1 gm 1X ONCE 02/01/19 02:30 02/01/19 02:34 DC Cephalexin HCl (Keflex) 500 mg 1X STAT 02/01/19 02:36 02/01/19 02:40 DC 02/01/19 02:58 500 MG Allergies Allergies Allergies Coded Allergies Type Severity Reaction Last Updated Verified No Known Medication Allergies Allergy Unknown 12/30/18 Yes lisinopril Adverse Reaction Intermediate 06/25/16 Yes Physical Exam Physical Exam Constitutional: Well developed, well nourished, no acute distress, non-toxic appearance. [] HENT: Normocephalic, atraumatic, bilateral external ears normal, oropharynx moist, no oral exudates, nose normal. [] Eyes: PERRLA, EOMI, conjunctiva normal, no discharge. [] Neck: Normal range of motion, no tenderness, supple, no stridor. [] Cardiovascular:Heart rate regular rhythm, no murmur [] Lungs & Thorax: Bilateral breath sounds clear to auscultation [] Abdomen: Bowel sounds normal, soft, no tenderness, no masses, no pulsatile masses. [] Skin: Warm, dry, no erythema, no rash. [] Back: No tenderness, no CVA tenderness. [] Extremities: No tenderness, no cyanosis, no clubbing, ROM intact, no edema. [] Left foot in boot. Neurologic: Alert and oriented X 3, normal motor function, normal sensory function, no focal deficits noted. [] Psychologic: Affect normal, judgement normal, mood normal. [] Current Patient Data Vital Signs Vital Signs Date Time Temp Pulse Resp B/P (MAP) Pulse Ox O2 Delivery O2 Flow Rate FiO2 02/01/19 01:51 76 97 02/01/19 00:52 97.8 15 128/76 (93) Room Air 97.8 Lab Values Laboratory Tests Test 02/01/19 01:40 02/01/19 02:02 Urine Collection Type Unknown Urine Color Yellow Urine Clarity Clear Urine pH 6.0 Urine Specific [place] <=1.005 Urine Protein Negative mg/dL (NEG-TRACE) Urine Glucose (UA) Negative mg/dL (NEG) Urine Ketones (Stick) Negative mg/dL (NEG) Urine Blood Small (NEG) Urine Nitrite Negative (NEG) Urine Bilirubin Negative (NEG) Urine Urobilinogen Dipstick 0.2 mg/dL (0.2 mg/dL) Urine Leukocyte Esterase Small (NEG) Urine RBC 1-2 /HPF (0-2) Urine WBC >40 /HPF (0-4) Urine Squamous Epithelial Cells None /LPF Urine Bacteria Moderate /HPF (0-FEW) White Blood Count 9.5 x10^3/uL (4.0-11.0) Red Blood Count 4.66 x10^6/uL (3.50-5.40) Hemoglobin 13.3 g/dL (12.0-15.5) Hematocrit 39.3 % (36.0-47.0) Mean Corpuscular Volume 85 fL (79-100) Mean Corpuscular Hemoglobin 29 pg (25-35) Mean Corpuscular Hemoglobin Concent 34 g/dL (31-37) Red Cell Distribution Width 14.8 % (11.5-14.5) H Platelet Count 380 x10^3/uL (140-400) Neutrophils (%) (Auto) 64 % (31-73) Lymphocytes (%) (Auto) 24 % (24-48) Monocytes (%) (Auto) 10 % (0-9) H Eosinophils (%) (Auto) 1 % (0-3) Basophils (%) (Auto) 0 % (0-3) Neutrophils # (Auto) 6.1 x10^3/uL (1.8-7.7) Lymphocytes # (Auto) 2.3 x10^3/uL (1.0-4.8) Monocytes # (Auto) 1.0 x10^3/uL (0.0-1.1) Eosinophils # (Auto) 0.1 x10^3/uL (0.0-0.7) Basophils # (Auto) 0.0 x10^3/uL (0.0-0.2) Sodium Level 141 mmol/L (136-145) Potassium Level 3.8 mmol/L (3.5-5.1) Chloride Level 104 mmol/L (98-107) Carbon Dioxide Level 26 mmol/L (21-32) Anion Gap 11 (6-14) Blood Urea Nitrogen 10 mg/dL (7-20) Creatinine 1.0 mg/dL (0.6-1.0) Estimated GFR (Cockcroft-Gault) 57.1 BUN/Creatinine Ratio 10 (6-20) Glucose Level 99 mg/dL (70-99) Calcium Level 9.4 mg/dL (8.5-10.1) Total Bilirubin 0.3 mg/dL (0.2-1.0) Aspartate Amino Transferase (AST) 24 U/L (15-37) Alanine Aminotransferase (ALT) 27 U/L (14-59) Alkaline Phosphatase 108 U/L (46-116) Total Protein 7.7 g/dL (6.4-8.2) Albumin 3.6 g/dL (3.4-5.0) Albumin/Globulin Ratio 0.9 (1.0-1.7) L Laboratory Tests 02/01/19 02:02 Laboratory Tests 02/01/19 02:02 EKG EKG nsr rate 79 no acute ischemia [] Radiology/Procedures Radiology/Procedures cxr neg[] Course & Med Decision Making Course & Med Decision Making Pertinent Labs and Imaging studies reviewed. (See chart for details) []PRIOR HX OF HTN Possible urinary tract infection, bipolar, depression, hypertension, osteoarthritis. RECENT ADMIT FOR HYPONATREMIA NOW WITH AMS likely secondary to ambien intake noted uti on u/a in ed. vitals good pt alert nonfocal neuro exam no head trauma sodium 141 rassured keflex rx Dragon Disclaimer Dragon Disclaimer This electronic medical record was generated, in whole or in part, using a voice recognition dictation system. Departure Departure Impression: Primary Impression: Urinary tract infection Disposition: HOME, SELF-CARE Condition: STABLE Referrals: SUKHDEV MAY MD (PCP) Scripts Cephalexin (CEPHALEXIN) 500 Mg Capsule 1 CAP PO QID, #40 CAP Prov: MATY PYLE MD 02/01/19 MATY PYLE MD Feb 01, 2019 00:39
[2019-02-01 01:49] LABS: BILIRUBIN,URINE NEGATIVE (NEG); CLARITY,URINE CLEAR; COLOR,URINE YELLOW; NITRITE,URINE NEGATIVE (NEG); PROTEIN,URINE NEGATIVE (NEG-TRACE); UROBILINOGEN,URINE 0.2 mg/dL (0.2 mg/dL)
[2019-02-01 01:59] LABS: BACTERIA,URINE MODERATE /HPF (0-FEW); WBC,URINE >40 /HPF (0-4)
[2019-02-01 02:18] LABS: BASO % 0 % (0-3); EOS # 0.1 x10^3/uL (0.0-0.7); EOS % 1 % (0-3); HEMATOCRIT 39.3 % (36.0-47.0); HEMOGLOBIN 13.3 g/dL (12.0-15.5); LYMPH # 2.3 x10^3/uL (1.0-4.8); LYMPH % 24 % (24-48); MEAN CORPUSCULAR HEMOGLOBIN 29 pg (25-35); MEAN CORPUSCULAR HGB CONC 34 g/dL (31-37); MEAN CORPUSCULAR VOLUME 85 fL (79-100); MONO % 10 % (0-9); NEUT # 6.1 x10^3/uL (1.8-7.7); NEUT % 64 % (31-73); PLATELET COUNT 380 x10^3/uL (140-400); RED BLOOD COUNT 4.66 x10^6/uL (3.50-5.40); RED CELL DISTRIBUTION WIDTH 14.8 % (11.5-14.5); WHITE BLOOD COUNT 9.5 x10^3/uL (4.0-11.0)
[2019-02-01] MEDS ORDERED: cefTRIAXone IV Push 1 GM VIAL. IVP ONE (02:30)
[2019-02-01 02:33] LABS: ALBUMIN 3.6 g/dL (3.4-5.0); ALBUMIN/GLOBULIN RATIO 0.9 (1.0-1.7); CALCIUM 9.4 mg/dL (8.5-10.1); GFR 57.1; TOTAL BILIRUBIN 0.3 mg/dL (0.2-1.0); TOTAL PROTEIN 7.7 g/dL (6.4-8.2)
[2019-02-01] MEDS ORDERED: CEPHALEXIN 250 MG CAPSULE. PO STA (02:36)
[2019-02-01 02:40] LABS: POTASSIUM 3.8 mmol/L (3.5-5.1)
[2019-02-01 02:51] VITALS: BP 125/67
[2019-02-01] MEDS ORDERED: CEPH500C PO (02:56)
--- NOTE | 2019-02-01 07:49 | RAD ---
EXAM: CHEST 1 VIEW History: Altered mental status COMPARISON: 12/30/2018 TECHNIQUE: Single portable radiograph of the chest FINDINGS: The cardiac silhouette is unremarkable. The lungs are clear bilaterally. The costophrenic sulci are clear and well demarcated. IMPRESSION: No radiographic evidence of an acute cardiopulmonary process. Electronically signed by: Yayo Mabry MD (02/01/2019 7:46 AM) [facility]
--- NOTE | 2019-02-01 10:13 | EKG ---
[facility] [address] [place] [address] Test Date: 2019-02-01 Test Time: 01:45:21 Pat Name: PHILOMENA YANG Department: Room: Gender: F Global Marketing Coordinator: : 1960 Requested By: MATY PYLE Order Number: [id number] Reading MD: Cristopher Arias MD Measurements Intervals [place] Rate: 79 P: 41 PA: 166 QRS: -15 QRSD: 84 T: 28 QT: 388 QTc: 445 Interpretive Statements SINUS RHYTHM Electronically Signed On 02-01-2019 10:26:43 CDT by Cristopher Arias MD
== END 2019-02-01 03:29 | disposition home or self-care (01) ==
LOC: ER 00:33
DX: N39.0 Urinary tract infection, site not specified (principal); R41.82 Altered mental status, unspecified; I10 Essential (primary) hypertension; Z90.89 Acquired absence of other organs; Z90.710 Acquired absence of both cervix and uterus; Z90.49 Acquired absence of other specified parts of digestive tract; Z88.8 Allergy status to other drugs, medicaments and biological substances
CPT/HCPCS: 36415; 71045; 80053; 81001; 85025; 87086; 93005; 99285-25

== ENCOUNTER → 2019-06-16 | Outpatient (CLI) | payer MEDICARE, MEDICAID ==
[~2019-06-16] MED LIST changes: +CEPH500C PO; +POTA20TA4 PO; -POTA20TA82 PO
[2019-06-16 15:15] LABS: ALBUMIN 3.8 g/dL (3.4-5.0); CREATININE 0.9 mg/dL (0.6-1.0); GFR 64.5; POTASSIUM 4.4 mmol/L (3.5-5.1); TOTAL BILIRUBIN 0.4 mg/dL (0.2-1.0); TOTAL PROTEIN 7.8 g/dL (6.4-8.2)
== END | disposition home or self-care (01) ==
LOC: LAB 14:16
PROVIDERS: ATTEND Psychiatry & Neurology Neurology
DX: G25.0 Essential tremor (principal)
CPT/HCPCS: 36415; 80053

== ENCOUNTER → 2019-12-03 | Outpatient (CLI) | payer MEDICARE, MEDICAID ==
--- NOTE | 2019-12-03 13:02 | RAD ---
MRI Brain without contrast History: Worsening tremor Technique: Multiplanar, multisequential noncontrast MR imaging was performed of the brain. Comparison: None Findings: There is motion degradation. There is no evidence of recent infarct or cytotoxic edema. Ventricular size is proportionate to the sulcal spaces. There is mild to moderate generalized supratentorial atrophy.There is no significant midline shift, intraaxial mass effect, or focal abnormal extra-axial fluid collection. There is no significant signal abnormality including hemosiderin deposition of the brain parenchyma. There is preservation of the major intracranial flow-voids at the skull base. The cerebellar tonsils are normal in location. There is no significant abnormality of the pineal gland or pituitary gland. There is somewhat disconjugate gaze. There is mild fluid laterally of the right mastoid air cells. The mastoid air cells are aerated. There is preserved marrow signal of the clivus. Impression: 1. 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 Electronically signed by: Ronnie Kimball MD (12/03/2019 12:59 PM) [id number]
== END | disposition home or self-care (01) ==
LOC: MRI 09:44
PROVIDERS: ATTEND Nurse Practitioner Family
DX: G25.0 Essential tremor (principal); Q25.0 Patent ductus arteriosus; G31.89 Other specified degenerative diseases of nervous system
CPT/HCPCS: 70551

== ENCOUNTER → 2020-10-20 | Outpatient (CLI) | payer MEDICARE, MEDICAID ==
--- NOTE | 2020-10-20 15:07 | RAD ---
DATE: October 20, 2020 EXAM: MAMMO YAMEL SCREENING BILATERAL HISTORY: Screening study. COMPARISON: 2013 This study was interpreted with the benefit of Computerized Aided Detection (CAD). FINDINGS: Breast Density: SCATTERED The breast parenchyma shows scattered fibroglandular densities. Breast parenchyma level B. There are new multiple nodules scattered throughout the right breast. There are coarse calcinations within the right breast. Nodularity of the left breast is stable. No new calcifications of the left breast are seen. IMPRESSION: Multiple new nodules are seen throughout the right breast. Recommend sonography of the entire right breast for further evaluation. BI-RADS CATEGORY: 0 INCOMPLETE: NEEDS ADDITIONAL IMAGING EVALUATION AND/OR PRIOR MAMMOGRAMS FOR COMPARISON. RECOMMENDED FOLLOW-UP: ADD ADDITIONAL IMAGING PQRS compliance statement: Patient information was entered into a reminder system with a target due date now for the next imaging study. Mammography is a sensitive method for finding small breast cancers, but it does not detect them all and is not a substitute for careful clinical examination. A negative mammogram does not negate a clinically suspicious finding and should not result in delay in biopsying a clinically suspicious abnormality. "Our facility is accredited by the [employer] Mammography Program." The patient's breast density may affect the ability of mammography to detect breast cancer. There are 4 categories of breast density, A, B, C and D. Breast density A means that most of the breast tissue is replaced with adipose tissue and therefore is not dense. Breast density B means that the breast tissue is mildly dense and scattered. Breast density C means that the breast tissue is heterogeneously dense. Breast density D means that the breast tissue is very dense. Breast densities especially C and D may decrease the sensitivity of mammography to detect breast cancer. Therefore, the patient may benefit from 3-D breast mammography (3D breast tomography) as a part of their screening mammogram. Insurance may or may not pay for this additional imaging. The patient's breast density based on today's mammogram is category B.
== END ==
LOC: MAMMO 14:20
PROVIDERS: ATTEND Family Medicine
DX: Z12.31 Encounter for screening mammogram for malignant neoplasm of breast (principal); N64.89 Other specified disorders of breast
CPT/HCPCS: 77063; 77067

== ENCOUNTER → 2020-10-27 | Outpatient (CLI) | payer MEDICARE, MEDICAID ==
--- NOTE | 2020-10-31 13:03 | RAD ---
EXAM: Right breast ultrasound. HISTORY: Right breast nodules on mammographic screening. Sonography is requested. COMPARISON: 10/20/2020. FINDINGS: Sonography of the right entire breast and axilla was performed. There is no suspicious sonographic finding. Many scattered subcentimeter cysts measure 5 mm or less f rom the 9:00 through 12:00 positions. There are few mildly dilated ducts at the 12:00 position withou t an intraductal mass. No solid lesions are identified. IMPRESSION: 1. BI-RADS Category 2: Benign findings. 2. Resume mammography in one year. Electronically signed by: Vilma Colvin MD (10/31/2020 1:00 PM) [id number]
== END ==
LOC: US 14:56
PROVIDERS: ATTEND Family Medicine
DX: N60.01 Solitary cyst of right breast (principal)
CPT/HCPCS: 76641

== ENCOUNTER → 2021-01-26 | Outpatient (CLI) | payer MEDICARE, MEDICAID ==
[~2021-01-26] MED LIST changes: +DEXL60CA2 PO
== END ==
LOC: SURGPAT 13:03
PROVIDERS: ATTEND Podiatrist
DX: Z01.818 Encounter for other preprocedural examination (principal); T84.84XA Pain due to internal orthopedic prosthetic devices, implants and grafts, initial encounter; M05.57 Rheumatoid polyneuropathy with rheumatoid arthritis of ankle and foot; X58.XXXA Exposure to other specified factors, initial encounter; Z79.899 Other long term (current) drug therapy
CPT/HCPCS: 36415; 82306; 82310; 84134

== ENCOUNTER → 2021-02-27 | Outpatient (CLI) | payer MEDICARE, MEDICAID | LOC: LAB 13:38 | PROVIDERS: ATTEND Nurse Practitioner Family | DX: E55.9 Vitamin D deficiency, unspecified (principal) | CPT/HCPCS: 36415; 82306; 82652 ==

== ENCOUNTER 2021-03-08 06:04 | Day surgery (SDC) | payer MEDICARE, MEDICAID ==
[2021-01-26 13:37] VITALS: BP 127/56
[~2021-03-08] VITALS: Ht 157.5 cm; Wt 116.0 kg
[~2021-03-08 06:04] MED LIST changes: +HYDROmorphone 2 MG/ML VIAL IVP PRN; +IV RINGERS,LACTATED 1000ML 1,000 ML IV SCH; +MORPHINE SULFATE 2 MG/ML INJ. IVP PRN; +PROCHLORPERAZINE 10 MG/2 ML VIAL. IVP PRN; +fentaNYL PF VIAL 100 MCG/2 ML VIAL IVP PRN
[2021-03-08 06:24] VITALS: BP 108/69
[2021-03-08] MEDS ORDERED: fentaNYL PF VIAL 100 MCG/2 ML VIAL ONE ×2 (06:56→10:56)
[2021-03-08] MEDS ORDERED: ONDANSETRON PF 4 MG/2 ML VIAL. ONE (06:57)
[2021-03-08] MEDS ORDERED: KETOROLAC 30 MG/ML VIAL. ONE (06:57)
[2021-03-08] MEDS ORDERED: PROPOFOL 10 MG/ML (20ML) VIAL. IV ONE (06:57)
[2021-03-08] MEDS ORDERED: DEXAMETHASONE SOD PHOS 4 MG/ML VIAL ONE (06:57)
[2021-03-08] MEDS ORDERED: LIDOCAINE 2% PF 5 ML VIAL. ONE (06:58)
[2021-03-08] MEDS ORDERED: ceFAZolin 2GM PREMIX 2 GM/50 ML BAG IV ONE (07:00)
[2021-03-08] MEDS ORDERED: BUPIVACAINE MPF 0.5% 30 ML VIAL. ONE (07:02)
[2021-03-08] MEDS ORDERED: LIDOCAINE 1% Multi-Dose 20 ML VIAL. ONE (07:02)
[2021-03-08] MEDS ORDERED: POVIDONE-IODINE 10% TOPICAL OINTMENT 28GM TUBE. TP ONE (07:02)
--- NOTE | 2021-03-08 07:49 | HP ---
ADMIT DATE: 03/08/2021 CHIEF COMPLAINT AND HISTORY OF PRESENT ILLNESS: This 60-year-old white female who is well known to me from followup in the office for many years. 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 PAST MEDICAL HISTORY: Remarkable for hypertension, hypoglycemia, depression, bipolar of the variety, falls, gait instability, hypertension, and lupus. MEDICATIONS: Brought with the patient, listed on the computer and have been addressed. ALLERGIES: SHE IS ALLERGIC TO LISINOPRIL CAUSING A COUGH. PAST SURGICAL HISTORY: Remarkable for appendectomy, bilateral knee replacements, cholecystectomy, prior foot surgeries. SOCIAL HISTORY: She is a reformed smoker for many years. Does not abuse alcohol or drugs. Single, lives at home with her mother. FAMILY HISTORY: Positive for breast cancer and cardiovascular disease. REVIEW OF SYSTEMS: Remarkable for the foot pain. PHYSICAL EXAMINATION: GENERAL: She is a well-developed, well-nourished white female in no acute distress. VITAL SIGNS: Stable. She is afebrile. HEAD, EYES, EARS, NOSE AND THROAT: Remarkable for glasses. NECK: Supple, without lymphadenopathy or thyromegaly. CHEST: Clear to auscultation and percussion. HEART: Regular rate and rhythm without S3, S4 or murmur. ABDOMEN: Soft, nontender, without hepatosplenomegaly or mass. EXTREMITIES: Without cyanosis, clubbing, or edema. NEUROLOGIC: She is intact. IMPRESSION: 1. Admission for foot surgery as discussed above. 2. Other problems listed above. PLAN: The patient is medically cleared for surgery. We will follow up postoperatively as needed, but expect will not be needed. SANG DEGROOT: Di TID: [id number]
--- NOTE | 2021-03-08 10:27 | PDOC4 ---
OPERATIVE NOTE Date: Date: Mar 08, 2021 Pre-Op Diagnosis: Right first MTPJ pseudoarthrosis, broken hardware, prominent painful hardware across the dorsal MTPJ, recurrent bunion deformity Post-Op Diagnosis: Same as above Procedure Performed: Right foot hardware removal, calcaneal autograft harvest, first MTPJ arthrodesis revision Surgeon: Prasanth Grant DPM Anesthesia Type: General Blood Loss: 5 cc Specimans Obtained: None Findings: Prominent first dorsal MTPJ plate, 3 intact screws and one broken screw within the plate. Dark pigmentation soft tissue changes near the site of broken screw proximally and laterally. The pigmented soft tissue does not track along the tendon, to the peripheral articular surface. Rather, is localized at the broken screw site. Cystic fibrotic changes at the distal hallux canal. 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 A formal timeout confirming patient's identity, procedure, procedure site was carried out. Following IV prophylactic antibiotics, general anesthesia, a well-padded high ankle tourniquet was placed on the right lower extremity. The right lower extremity was then scrubbed, prepped and draped using aseptic techniques. The right lower extremity was exsanguinated and then the tourniquet was inflated to 225 mill mercury. The attention was directed to the dorsal medial aspect of the first MTPJ of the right lower extremity, where the previous cicatrix/incision was made. A linear incision was carried out following the prior cicatrix, just medial to the EHL extending from proximal hallux IPJ to the proximal first metatarsal metaphysis. The incision was carried deep with dissection with care to protect and retract all the neurovascular bundles and tendon. A linear capsulotomy was made across the dorsal medial aspect of the first MTPJ in line with the skin incision. The remodeled scar tissue and periosteum were reflected off the dorsal plate. 3 s crews and the plate were removed in toto and one proximal lateral screw was noted broken. The broken screw was removed with a rongeur without complication. At this time, the deep tissue capsule was noted dark pigmented near the broken screw site without any tracking along tendons, periarticular violation. There was no fluctuance, or drainage noted from the broken screw site either. The pigmented dark tissue was removed in total with a #15 blade without violating the intermetatarsal neurovascular bundle or structures. The first MTPJ capsule was elevated off the first metatarsal head and the base of the proximal hallux with care to avoid over dissection to the lateral aspect of the joint to avoid possible AVN. At this time, we noted cystic/fibrotic changes in the distal hallux canal. Fibrous union across the first MTPJ with plantarly adhesed sesamoids. Fibrous cartilaginous changes were noted across the first metatarsal head. Hallux was also noted a be ducted of the MTPJ abutting the second digit. The first metatarsal was also found mildly soft throughout. Then the osseous periarticular prominence across the first MTPJ was removed with a combination of a bone rongeur and a sagittal saw. Then the articular joint space across the first MTPJ was prepared with a combination of osteotome, rongeur, upper to healthy bleeding subchondral layer. Copious saline solution was used to irrigate the first MTPJ. the first MTPJ further fenestration with 2.0 mm drill bit was recruited to encourage osseous bridging and healing. Then the attention was directed to the lateral calcaneus. Intraoperative x-ray was used to locate the site of autograft harvest, approximately 2 cm dorsal and proximal from the distal posterior calcaneal cortex. The overlying skin was incised with a #15 blade, measures approximately 1 cm in length. Blunt dissection was used to carry the incision deep to periosteum layer. Then Anderson 28 bone harvester trocar was used to harvest approximately 8 cc of BMA/cancellous graft without penetrating the medial cortex or violating the plantar or posterior cortex of the calcaneus. The site was copiously irrigated with saline and then closed with 4 Monocryl and 4-0 nylon. Then, approximately 6 cc of cancellous/BMA graft was impacted into the proximal hallux canal where the cystic/fibrotic changes were noted. The first MTPJ was positioned with the joint 10 degrees dorsiflexed, 5 degrees abducted, the nail plate was parallel to the weightbearing surface. The position was temporarily fixated with two 0.054 inch K wires traversing the joint. X-ray was utilized to confirm the adequate positioning and joint apposition. Then using standard AO techniques, a dorsal long revision plate was used to stabilize the first MTPJ with a combination of locking and nonlocking 3.5 millimeter screws. Compression was achieved with an eccentric hole proximally within the plate. Intraoperative x-ray remarked adequate hardware length, position, joint apposition, and joint position. Then the surgical site was irrigated with copious saline solution. Proximally 2 cc of cancellous/BMA graft were impacted into the fusion site. The capsule was closed with 3-0 Vicryl and skin was closed with 4-0 Monocryl and 4-0 nylon. 10 cc of 0.25% Marcaine plain was infiltrated to the procedure site. At the site was dressed with Betadine soaked Adaptic, 4 x 4 gauze, and ABD. The right lower extremity was then immobilized in a well-padded Lopez compression splint. At this time, tourniquet was let down and adequate digital perfusion was noted. The DJD changes across the hallux IPJ has not been symptomatic or limiting per patient. Therefore, before surgery, we both agreed to leave the joint intact without fusion which could be less tolerable especially after MTPJ fusion. Patient tolerated anesthesia and procedure well with vital signs stable and neurovascular status intact. Patient was then transferred to PACU for continuous recovery. Pending right foot 3 view x-ray. PRASANTH GRANT DPM Mar 08, 2021 10:27
[2021-03-08] MEDS ORDERED: oxyCODONE/APAP 5/325 1 TAB TABLET PO ONE (10:30)
[2021-03-08] MEDS ORDERED: ACETAMINOPHEN 325 MG TABLET. PO ONE (10:30)
[2021-03-08] MEDS ORDERED: GABAPENTIN 100 MG CAPSULE. PO ONE (10:30)
[2021-03-08 12:27] VITALS: BP 140/60
--- NOTE | 2021-03-08 17:57 | RAD ---
EXAM: XR FOOT_RIGHT 3 VIEWS 03/08/2021 10:30 AM CLINICAL INDICATION: PACU, postop COMPARISON: Right foot radiograph 01/20/2021 TECHNIQUE: 3 views of the right foot FINDINGS: Splint/cast material obscures detail. There is been interval resolution of arthrodesis at the great toe MTP joint with a new plate and screw fixation device. There is decreased hallux valgus. Surgical resection of the second through fifth metatarsal heads is redemonstrated. There are erosion s of the great toe IP joint. IMPRESSION: Interval revision of great toe MTP joint arthrodesis. Overlying casting material obscure s detailed evaluation. Electronically signed by: Sandra Menendez MD (03/08/2021 5:55 PM) [id number]
== END 2021-03-08 12:59 | disposition home or self-care (01) ==
LOC: SURG 06:04
PROVIDERS: ATTEND Podiatrist
DX: T84.84XA Pain due to internal orthopedic prosthetic devices, implants and grafts, initial encounter (principal); M21.611 Bunion of right foot; I10 Essential (primary) hypertension; E78.00 Pure hypercholesterolemia, unspecified; E66.9 Obesity, unspecified; K21.9 Gastro-esophageal reflux disease without esophagitis; F41.9 Anxiety disorder, unspecified; F32.9 Major depressive disorder, single episode, unspecified; M19.90 Unspecified osteoarthritis, unspecified site; Z90.49 Acquired absence of other specified parts of digestive tract; Z90.710 Acquired absence of both cervix and uterus; Z98.890 Other specified postprocedural states; Z79.899 Other long term (current) drug therapy; Z88.8 Allergy status to other drugs, medicaments and biological substances
CPT/HCPCS: 20680; 28750; 73630; 97162; 97530; A4209; A4213; A4930; A6223; A6253; A6402; A6449; A6450; C1713; J0690; J1100; J1885; J2405; J2704; J3010; J3490; A4223; A4657

== ENCOUNTER 2021-10-23 06:49 | Day surgery (SDC) | payer MEDICARE, MEDICAID ==
[~2021-10-23] VITALS: Ht 157.5 cm; Wt 119.0 kg
[~2021-10-23 06:49] MED LIST changes: +DICL75TA PO; -DULO60CA6 PO; +DULO60CA7 PO; +HYDROmorphone 2 MG/ML INJ. IVP PRN; -HYDROmorphone 2 MG/ML VIAL IVP PRN; +NAPR-514 PO; +ONDA4TAB12 PO; +ZIPR60CA3 PO
[2021-10-23 07:19] VITALS: BP 140/67
[2021-10-23] MEDS ORDERED: BUPIVACAINE MPF 0.25% 30 ML VIAL. ONE (07:53)
[2021-10-23] MEDS ORDERED: PROPOFOL 10 MG/ML (20ML) VIAL. IV ONE (08:00)
[2021-10-23] MEDS ORDERED: ONDANSETRON PF 4 MG/2 ML VIAL. ONE (08:00)
[2021-10-23] MEDS ORDERED: DEXAMETHASONE SOD PHOS 4 MG/ML VIAL ONE (08:00)
--- NOTE | 2021-10-23 09:40 | PDOC4 ---
OPERATIVE NOTE Date: Date: October 23, 2021 Pre-Op Diagnosis: 1. 60-year-old female right carpal tunnel syndrome Post-Op Diagnosis: 1. 60-year-old female right carpal tunnel syndrome 2. s/p right open carpal tunnel release Procedure Performed: 1. Right open carpal tunnel release Surgeon: Erick Anesthesia Type: MAC Blood Loss: 5 cc Specimans Obtained: None Complications: Patient tolerated the procedure well without any complications. Operative Note: See dictation. OSKAR GUZMAN October 23, 2021 09:40
[2021-10-23] MEDS ORDERED: OXYC5TAB88 PO (09:44)
[2021-10-23] MEDS ORDERED: ONDA4TAB12 PO (09:44)
--- NOTE | 2021-10-23 09:46 | DISCH ---
DISCHARGE INSTRUCTIONS Condition on Discharge Condition on Discharge: Stable Activity After Discharge Activity Instructions for Disc: Avoid exertion Bathing Instructions: Shower-keep dressing dry Lifting Instructions after Dis: No heavy lifting, No pulling or pushing, Do not lift >10 pounds Exercise Instruction after Dis: Walk 10 min, 3 x per day, Exercise per therapy, Progress as tolerated Driving Instructions after Dis: Do not drive (while taking narcotic pain meds) Weight Bearing Status after Di: Other, see below (No lifting >5lbs RUE) Diet after Discharge Diet after Discharge: Regular Diet Texture: Regular Wound Incision Care Wound/Incision Care: Keep wound/cast CDI, Reinforce dressing PRN Contacting the DR. after DC Call your doctor for: If your condition worsens Follow-Up Follow up with: Follow up with clinic in 1-2 weeks. [phone] Treatment/Equipment after DC Adaptive Equipment Issued: None OSKAR GUZMAN October 23, 2021 09:46
[2021-10-23] MEDS ORDERED: oxyCODONE/APAP 5/325 1 TAB TABLET PO ONE (10:30)
[2021-10-23 11:00] VITALS: BP 140/70
--- NOTE | 2021-10-24 07:45 | OP ---
DATE OF SURGERY: 10/23/2021 PREOPERATIVE DIAGNOSIS: Carpal tunnel syndrome, chronic, right. POSTOPERATIVE DIAGNOSIS: Carpal tunnel syndrome, chronic, right. PROCEDURE: Right carpal tunnel release. SURGEON: Zeferino Suarez Jr, DO BAKER: SRIKANTH Hawley ANESTHESIA: General. COMPLICATIONS: None. ESTIMATED BLOOD LOSS: Less than 5 mL. DESCRIPTION OF PROCEDURE: Right upper extremity was then prepped and draped in a sterile fashion. Incision was made directly over the area of the transverse carpal ligament in line with the radial border of the digit. This was carefully down through skin and subcutaneous tissues down through the palmar fascia. Once through the palmar fascia, the transverse carpal ligament was identified at this point. A minimal portion of the insertion of the thenar musculature was removed in order to make the incision longitudinally through the transverse carpal ligament, which was released in its entirety. The underlying nerve was noted to be intact. The wound was then thoroughly irrigated. It was reapproximated in an interrupted fashion using 3-0 nylon. The wound was then infiltrated with local. Sterile dressing was applied. The tourniquet was deflated with good return of pulses and capillary refill. The patient was then taken from the operative bed to the postoperative bed, taken to the PACU in stable condition. SHAHIDA/LONI/ELOY DR: Rossy TID: [id number]
== END 2021-10-23 11:30 | disposition home or self-care (01) ==
LOC: SURG 06:49
PROVIDERS: ATTEND Orthopaedic Surgery
DX: G56.01 Carpal tunnel syndrome, right upper limb (principal); I10 Essential (primary) hypertension; E78.00 Pure hypercholesterolemia, unspecified; E66.9 Obesity, unspecified; K21.9 Gastro-esophageal reflux disease without esophagitis; M19.90 Unspecified osteoarthritis, unspecified site; F41.9 Anxiety disorder, unspecified; F32.9 Major depressive disorder, single episode, unspecified; Z90.49 Acquired absence of other specified parts of digestive tract; Z90.710 Acquired absence of both cervix and uterus; Z98.890 Other specified postprocedural states; Z79.899 Other long term (current) drug therapy; Z87.440 Personal history of urinary (tract) infections; Z88.8 Allergy status to other drugs, medicaments and biological substances
CPT/HCPCS: 64721; A4930; A6402; J0690; J1100; J2405; J2704; J3010; J3490; A4657; A6452